=== PATIENT | male | born 1970 | race Caucasian/White ===

== ENCOUNTER 2016-04-23 19:38 | Emergency (ER) | payer OTHER ==
[~2016-04-23] VITALS: Ht 188 cm; Wt 106.1 kg
[~2016-04-23 19:38] MED LIST: OMEP20CA5 PO
[2016-04-23] MEDS ORDERED: ONDANSETRON PF 4 MG/2 ML VIAL. IV ONE (20:30)
[2016-04-23] MEDS ORDERED: IV NORMAL SALINE 1000ML BAG 1,000 ML IV ONE (20:30)
[2016-04-23 20:46] LABS: BASO % 0 % (0-3); EOS % 1 % (0-3); HEMATOCRIT 38.9 % (39.0-53.0); HEMOGLOBIN 12.5 g/dL (13.0-17.5); LYMPH # 1.3 x10^3/uL (1.0-4.8); LYMPH % 13 % (24-48); MEAN CORPUSCULAR HEMOGLOBIN 26 pg (25-35); MEAN CORPUSCULAR HGB CONC 32 g/dL (31-37); MEAN CORPUSCULAR VOLUME 82 fL (79-100); MONO % 8 % (0-9); NEUT % 78 % (31-73); PLATELET COUNT 300 x10^3/uL (140-400); RED BLOOD COUNT 4.76 x10^6/uL (4.30-5.70); RED CELL DISTRIBUTION WIDTH 17.7 % (11.5-14.5); WHITE BLOOD COUNT 10.1 x10^3/uL (4.0-11.0)
[2016-04-23 21:07] LABS: CALCIUM 9.5 mg/dL (8.5-10.1); CREATININE 1.1 mg/dL (0.7-1.3); GFR 71.8; POTASSIUM 4.5 mmol/L (3.5-5.1)
[2016-04-23 21:18] LABS: TOTAL BILIRUBIN 0.4 mg/dL (0.2-1.0)
[2016-04-23 21:19] LABS: OBC FLU VALID
[2016-04-23] MEDS ORDERED: NAPR500T3 PO (21:34)
--- NOTE | 2016-04-23 21:34 | PHYS DOC ---
Past Medical History Past Medical History: High Cholesterol Past Surgical History: Tonsillectomy Alcohol Use: Occasionally Drug Use: None Adult General Chief Complaint Chief Complaint: ABDOMINAL PAIN HPI HPI 45-year-old male presents with cough congestion and body aches headache some abdominal cramping and nausea. He did not have a flu shot this year. She just feels weak all over. He has not had any high fever.] Review of Systems Review of Systems Constitutional: Denies fever or chills [] Eyes: Denies change in visual acuity, redness, or eye pain [] HENT: Denies nasal congestion or sore throat [] Respiratory: Denies cough or shortness of breath [] Cardiovascular: No additional information not addressed in HPI [] GI: Per history of present illness [] : Denies dysuria or hematuria [] Musculoskeletal: Denies back pain or joint pain [] Integument: Denies rash or skin lesions [] Neurologic: Denies headache, focal weakness or sensory changes [] Endocrine: Denies polyuria or polydipsia [] Current Medications Current Medications Current Medications Medications (Trade) Dose Ordered Sig/Sathya Start Time Stop Time Status Last Admin Dose Admin Ondansetron HCl (Zofran) 4 mg 1X ONCE 04/23/16 20:30 04/23/16 20:31 DC 04/23/16 20:41 4 MG Sodium Chloride (Iv Sodium Chloride 0.9% 1000ml Bag) 1,000 ml @ 1,000 mls/hr 1X ONCE 04/23/16 20:30 04/23/16 21:29 04/23/16 20:42 1,000 MLS/HR Allergies Allergies Allergies Coded Allergies Type Severity Reaction Last Updated Verified No Known Drug Allergies 08/19/15 No Physical Exam Physical Exam Constitutional: Well developed, well nourished, no acute distress, non-toxic appearance. [] HENT: Normocephalic, atraumatic, bilateral external ears normal, oropharynx moist, no oral exudates, nose normal. [] Eyes: PERRLA, EOMI, conjunctiva normal, no discharge. [] Neck: Normal range of motion, no tenderness, supple, no stridor. [] Cardiovascular:Heart rate regular rhythm, no murmur [] Lungs & Thorax: Bilateral breath sounds clear to auscultation [] Abdomen: Bowel sounds normal, soft, no tenderness, no masses, no pulsatile masses. [] Skin: Warm, dry, no erythema, no rash. [] Back: No tenderness, no CVA tenderness. [] Extremities: No tenderness, no cyanosis, no clubbing, ROM intact, no edema. [] Neurologic: Alert and oriented X 3, normal motor function, normal sensory function, no focal deficits noted. [] Psychologic: Affect normal, judgement normal, mood normal. [] Current Patient Data Vital Signs Vital Signs Date Time Temp Pulse Resp B/P Pulse Ox O2 Delivery O2 Flow Rate FiO2 04/23/16 20:10 98.1 100 22 128/86 98 Room Air 98.1 Lab Values Laboratory Tests Test 04/23/16 20:15 04/23/16 20:40 White Blood Count 10.1x10^3/uL (4.0-11.0) Red Blood Count 4.76x10^6/uL (4.30-5.70) Hemoglobin 12.5g/dL (13.0-17.5) L Hematocrit 38.9% (39.0-53.0) L Mean Corpuscular Volume 82fL (79-100) Mean Corpuscular Hemoglobin 26pg (25-35) Mean Corpuscular Hemoglobin Concent 32g/dL (31-37) Red Cell Distribution Width 17.7% (11.5-14.5) H Platelet Count 300x10^3/uL (140-400) Neutrophils (%) (Auto) 78% (31-73) H Lymphocytes (%) (Auto) 13% (24-48) L Monocytes (%) (Auto) 8% (0-9) Eosinophils (%) (Auto) 1% (0-3) Basophils (%) (Auto) 0% (0-3) Neutrophils # (Auto) 7.9x10^3uL (1.8-7.7) H Lymphocytes # (Auto) 1.3x10^3/uL (1.0-4.8) Monocytes # (Auto) 0.8x10^3/uL (0.0-1.1) Eosinophils # (Auto) 0.1x10^3/uL (0.0-0.7) Basophils # (Auto) 0.0x10^3/uL (0.0-0.2) Sodium Level 142mmol/L (136-145) Potassium Level 4.5mmol/L (3.5-5.1) Chloride Level 105mmol/L (98-107) Carbon Dioxide Level 23mmol/L (21-32) Anion Gap 14 (6-14) Blood Urea Nitrogen 12mg/dL (8-26) Creatinine 1.1mg/dL (0.7-1.3) Estimated GFR (Cockcroft-Gault) 71.8 BUN/Creatinine Ratio 11 (6-20) Glucose Level 117mg/dL (70-99) H Calcium Level 9.5mg/dL (8.5-10.1) Total Bilirubin 0.4mg/dL (0.2-1.0) Aspartate Amino Transferase (AST) 20U/L (15-37) Alanine Aminotransferase (ALT) 39U/L (16-63) Alkaline Phosphatase 64U/L (46-116) Troponin I Quantitative < 0.017ng/mL (0.000-0.055) XZ-Rbc-T-Type Natriuretic Peptide 18pg/mL (0-124) Total Protein 8.0g/dL (6.4-8.2) Albumin 4.0g/dL (3.4-5.0) Albumin/Globulin Ratio 1.0 (1.0-1.7) Influenza Type A Antigen Negative (NEGATIVE) Influenza Type B Antigen Negative (NEGATIVE) Laboratory Tests 04/23/16 20:15 Laboratory Tests 04/23/16 20:15 EKG EKG [] Radiology/Procedures Radiology/Procedures [] Course & Med Decision Making Course & Med Decision Making Pertinent Labs and Imaging studies reviewed. (See chart for details) [ED course: Evaluation reveals a 45-year-old male in no significant distress was evaluated for what sounds like flulike symptoms. He is given IV fluids during his stay in the emergency which did help alleviate his symptoms.] Dragon Disclaimer Dragon Disclaimer This electronic medical record was generated, in whole or in part, using a voice recognition dictation system. Departure Departure Impression: Primary Impression: Viral syndrome Disposition: 01 HOME, SELF-CARE Condition: IMPROVED Referrals: IAN BENSON MD (PCP) Patient Instructions: Viral Syndrome Additional Instructions: Thank you for allowing us to participate in your care today. Followup with your primary care physician in 3 days if your symptoms do not improve. Return to the emergency department you have any new or concerning findings. This should be evaluated by the primary care physician and any necessary consulting services for continued management within a few days after discharge. Return to emergency room if you have any new or concerning symptoms including but not limited to fever, chills, nausea, vomiting, intractable pain, any new rashes, chest pain, shortness of air, uncontrolled bleeding, difficulty breathing, and/or vision loss. You may have been prescribed medication that can change in your level of thinking and ability to operate machinery. These medications include hydrocodone and Ativan. Also, Benadryl has been known to do this as well. Be sure to check with your pharmacist and ask if the medications you've prescribed can affect your level of consciousness. I recommend not operating heavy machinery or driving while on medication such as these. Scripts Naproxen 500 Mg Tablet1 Tab PO BID PRN PAIN #30 TAB Ref 1 Prov:KEREN FUNG DO 04/23/16 KEREN FUNG DO Apr 23, 2016 21:34
[2016-04-23 21:50] LABS: BILIRUBIN,URINE NEGATIVE (NEG); GLUCOSE,URINE NEGATIVE (NEG); NITRITE,URINE NEGATIVE (NEG); PROTEIN,URINE NEGATIVE (NEG-TRACE)
[2016-04-23 21:55] LABS: BACTERIA,URINE 0 /HPF (0-FEW); RBC,URINE 0 /HPF (0-2); SQUAMOUS EPITHELIAL CELL,UR OCC /LPF; WBC,URINE OCC /HPF (0-4)
[2016-04-23 21:56] VITALS: BP 112/73
--- NOTE | 2016-04-24 06:08 | EKG ---
[facility] [address] [place] [address] Test Date: 2016-04-23 Test Time: 20:09:41 Pat Name: GIO RICHARDSON Department: Room: Gender: Manufacturing Quality Engineer: : 1970 Requested By: KEREN FUNG Order Number: [id number] Reading MD: Jake Morales Measurements Intervals [place] Rate: 106 P: NM: QRS: -31 QRSD: 90 T: 28 QT: 332 QTc: [address] Electronically Signed On 04-24-2016 15:45:48 VIDEO CONFERENCE SPECIALIST by Jake Morales
--- NOTE | 2016-04-24 07:36 | RAD ---
EXAM: Chest, single view. HISTORY: Dyspnea. COMPARISON: None. FINDINGS: A frontal view of the chest is obtained. There is no infiltrate, effusion or pneumothorax. The heart is normal in size. IMPRESSION: No acute pulmonary finding.
== END 2016-04-23 21:56 | disposition home or self-care (01) ==
LOC: ER 19:38
DX: B34.9 Viral infection, unspecified (principal); E78.00 Pure hypercholesterolemia, unspecified; R11.0 Nausea; R53.1 Weakness; Z90.89 Acquired absence of other organs
CPT/HCPCS: 36415; 71010; 80053; 81001; 83880; 84484; 85027; 87804; 93005; 96361; 96374; 99285; J2405; J7030

== ENCOUNTER 2017-11-06 01:48 | Emergency (ER) | payer OTHER ==
[2017-11-06] MEDS ORDERED: diazePAM 5 MG TABLET (02:19)
[2017-11-06] MEDS ORDERED: MORPHINE SULFATE 10 MG/ML VIAL. (02:19)
[2017-11-06] MEDS: diazePAM 5 MG TABLET PO (02:23)
[2017-11-06] MEDS: MORPHINE SULFATE 10 MG/ML VIAL. IM (02:23)
== END 2017-11-06 03:15 | disposition home or self-care (01) ==
LOC: ER 01:48
DX: M62.830 Muscle spasm of back (principal); E78.00 Pure hypercholesterolemia, unspecified; V50.5XXA Driver of pick-up truck or van injured in collision with pedestrian or animal in traffic accident, initial encounter; Y93.89 Activity, other specified; Y92.488 Other paved roadways as the place of occurrence of the external cause; Y99.8 Other external cause status
CPT/HCPCS: 96372; 99283; J2270

== ENCOUNTER → 2018-09-22 | Outpatient (CLI) | payer OTHER ==
[2017-11-06 02:00] VITALS: BP 128/78
[~2018-09-22] MED LIST changes: +DIAZ5TAB PO; +HYDR-3164 PO; +IBUP-1060 PO; +NAPR-514 PO
--- NOTE | 2018-09-22 13:34 | KCIC ---
MR of the right knee HISTORY: Acute right knee pain, suspect medial meniscal injury. Pain around the patella. TECHNIQUE: Routine multiplanar sequences are obtained. FINDINGS: No evidence of medial meniscal tear or lateral meniscal tear. Anterior and posterior cruciate ligaments are intact. There is a small cyst or ganglion along the ACL. Medial collateral ligament intact. Iliotibial band unremarkable. Fibular collateral ligament and popliteus tendon are intact. Extensor mechanism is intact. Trace joint effusion. Mild chondromalacia of the patellofemoral joint. Mild chondromalacia at the medial joint. No acute fracture or aggressive bone destruction. Trace Coreas's cyst. IMPRESSION: 1. No meniscal tear or internal derangement. 2. Mild chondromalacia. Electronically signed by: Keith Deutsch MD (09/22/2018 1:30 PM) [id number]
== END | disposition home or self-care (01) ==
LOC: KCIC MRI 08:04
PROVIDERS: ATTEND Orthopaedic Surgery
DX: M22.41 Chondromalacia patellae, right knee (principal)
CPT/HCPCS: 73721

== ENCOUNTER → 2018-12-08 | Outpatient (CLI) | payer OTHER ==
[2017-11-06 02:00] VITALS: BP 128/78
[2018-12-08 20:30] LABS: CREATININE 1.2 mg/dL (0.7-1.3); GFR 64.1; POTASSIUM 3.6 mmol/L (3.5-5.1)
[2018-12-08 20:31] LABS: CHOLESTEROL/HDL RATIO 5.7
[2018-12-08 20:42] LABS: BASO % 1 % (0-3); EOS # 0.2 x10^3/uL (0.0-0.7); EOS % 3 % (0-3); HEMATOCRIT 43.6 % (39.0-53.0); HEMOGLOBIN 14.7 g/dL (13.0-17.5); LYMPH # 2.2 x10^3/uL (1.0-4.8); LYMPH % 41 % (24-48); MEAN CORPUSCULAR HEMOGLOBIN 32 pg (25-35); MEAN CORPUSCULAR HGB CONC 34 g/dL (31-37); MEAN CORPUSCULAR VOLUME 94 fL (79-100); MONO # 0.5 x10^3/uL (0.0-1.1); MONO % 8 % (0-9); NEUT # 2.6 x10^3/uL (1.8-7.7); NEUT % 48 % (31-73); PLATELET COUNT 204 x10^3/uL (140-400); RED BLOOD COUNT 4.62 x10^6/uL (4.30-5.70); RED CELL DISTRIBUTION WIDTH 16.5 % (11.5-14.5); WHITE BLOOD COUNT 5.5 x10^3/uL (4.0-11.0)
[2018-12-10 04:09] LABS: HEMOGLOBIN A1C 5.5 % (4.8-5.6)
== END | disposition home or self-care (01) ==
LOC: SPEC 19:55
PROVIDERS: ATTEND Family Medicine
DX: Z12.5 Encounter for screening for malignant neoplasm of prostate (principal); Z13.220 Encounter for screening for lipoid disorders; E16.2 Hypoglycemia, unspecified; Z82.49 Family history of ischemic heart disease and other diseases of the circulatory system
CPT/HCPCS: 36415; 80048; 80061; 83036; 84153; 84439; 84443; 85025; G0103

== ENCOUNTER → 2019-02-12 | Day surgery (SDC) | payer OTHER ==
[~2019-02-12] MED LIST changes: +IV RINGERS,LACTATED 1000ML 1,000 ML IV ONE; +LIDOCAINE 2% PF 5 ML VIAL. ONE; +PROPOFOL 40 ML IV ONE
[2019-02-12 13:59] VITALS: BP 150/74
--- NOTE | 2019-02-16 17:06 | PATHOLOGY ---
[facility] Accession Number: [id number] . 01 Material submitted: . PART A: splenic flexure - SPLENIC FLEXURE POLYPECTOMY PART B: rectum - RECTAL MASS BX . 01 Clinical history: . Rectal bleed . 02 Diagnosis: A. Colon, splenic flexure, biopsy: - Adenomatous polyp. . B. Colon, "rectal mass", biopsy: - INVASIVE MODERATELY DIFFERENTIATED ADENOCARCINOMA. . (Please see comment). (SKM:pit; 02/13/2019) [facility] 02/13/2019 0953 Local . 02 Comment: Part B of this case has also been reviewed by Dr. Deni Spaulding MD who agrees with the diagnosis. . The findings in this case were relayed to Nessa at Dr. Michael Jackson's office on 02/13/2019. (SKM:[facility]; 02/13/2019) . . 02 Electronically signed: . Gopi Denis MD, Pathologist NPI- [id number] . 01 Gross description: . A. Received in formalin labeled "Getachew Laureano, splenic flexure polypectomy," is a 0.8 x 0.5 x 0.5 cm polypoid piece of nolan soft tissue. The margin is inked and the tissue is sectioned perpendicular to the margin and submitted entirely in cassette A1. . B. Received in formalin labeled "Getachew Laureano, rectal mass BX," are multiple segments of nolan soft tissue measuring 2.0 x 0.4 x 0.1 cm in aggregate dimensions. The specimen is filtered and entirely submitted in cassette B1. (TSD; 02/12/2019) TOB/TOB 02/12/20191958 Local . 02 Pathologist provided ICD-10: C20, K63.5 . 02 CPT . 008938, 212643 Specimen Comment: A courtesy copy of this report has been sent to [phone], [phone] Specimen Comment: [phone] Specimen Comment: Report sent to / DR DAUGHERTY Performed at: 01 [facility] [address], [place] [id number] MD Niranjan Ritchie MD Phone: [phone] Performed at: 02 [facility] [address] [place], [place] [id number] MD Dhruv Yanez MD Phone: [phone]
== END | disposition home or self-care (01) ==
LOC: ENDOS 11:29
PROVIDERS: ATTEND Internal Medicine Gastroenterology
DX: K92.1 Melena (principal); C20 Malignant neoplasm of rectum; D12.3 Benign neoplasm of transverse colon; K57.30 Diverticulosis of large intestine without perforation or abscess without bleeding; K64.0 First degree hemorrhoids; F15.90 Other stimulant use, unspecified, uncomplicated; Z72.89 Other problems related to lifestyle
CPT/HCPCS: 45380; 45385; 88305; J2001; J2704

== ENCOUNTER → 2019-02-27 | Outpatient (CLI) | payer OTHER ==
[2019-02-12 13:59] VITALS: BP 150/74
[~2019-02-27] MED LIST changes: +IOHEXOL 240 MG/ML 50ML VIAL. PO ONE; +IOHEXOL 300 MG/ML 100ML VIAL. IV ONE; -IV RINGERS,LACTATED 1000ML 1,000 ML IV ONE; -LIDOCAINE 2% PF 5 ML VIAL. ONE; -PROPOFOL 40 ML IV ONE
--- NOTE | 2019-02-27 14:10 | KCIC ---
CT ABD PELV W/ORAL IV CONTRAST Indication: Rectal mass, rectal bleeding Technique: Postcontrast CT imaging was performed of the abdomen pelvis, multiplanar reconstruction images submitted. Oral contrast was also given. One or more of the following individualized dose reduction techniques were utilized for this examination: 1. Automated exposure control 2. Adjustment of the mA and/or kV according to patient size 3. Use of iterative reconstruction technique. Comparison: None Findings: There is mild atelectasis near the lung bases bilaterally. There is approximate 1 cm noncalcified lingular nodule best seen image 8 series 2. However there is also atelectasis in this region. No focal abnormality is identified of the liver, spleen, pancreas. Gallbladder is present without obvious intraluminal abnormality by CT. There is no adrenal nodularity. Both kidneys enhance, no hydronephrosis. Bowel is not significantly dilated. There is no free fluid or free air. The colon is not opacified with oral contrast for accurate evaluation for wall thickening. There is variable retained stool in the colon. Segment of normal appendix is visualized. There may be degree of wall thickening of the more distal sigmoid colon to rectum. No significantly enlarged nodes are identified. IMPRESSION: 1. No significant lymphadenopathy or evidence of metastatic disease to the abdomen pelvis is identified. There is variable retained stool in the colon. There may be degree of nonspecific wall thickening of the distal sigmoid colon to the rectum, cannot accurately evaluate for colonic mass on this exam. 2. There may be a lingular nodule although there is also atelectasis in this region. Regarding the visualized nodule, 3 month follow-up is recommended as per revised Fleischner guidelines. Dedicated chest CT may be beneficial to completely evaluate for nodules. Electronically signed by: Darin Orozco MD (02/27/2019 2:08 PM) [facility]
== END | disposition home or self-care (01) ==
LOC: KCIC CT 09:25
PROVIDERS: ATTEND Internal Medicine Gastroenterology
DX: K62.5 Hemorrhage of anus and rectum (principal); K62.89 Other specified diseases of anus and rectum; J98.11 Atelectasis; R91.1 Solitary pulmonary nodule
CPT/HCPCS: 74177; Q9966; Q9967

== ENCOUNTER → 2019-03-17 | Outpatient (CLI) | payer OTHER ==
[2019-02-12 13:59] VITALS: BP 150/74
[~2019-03-17] MED LIST changes: +GADOTERATE 7.5 MMOL/15ML VIAL. IVP ONE; -IOHEXOL 240 MG/ML 50ML VIAL. PO ONE; -IOHEXOL 300 MG/ML 100ML VIAL. IV ONE; +SERT25TA PO
--- NOTE | 2019-03-17 14:39 | RAD ---
EXAM: MRI PELVIS WITH AND WITHOUT CONTRAST. HISTORY: Rectal cancer staging. TECHNIQUE: MRI of the pelvis was performed before and after the intravenous administration of gadolinium contrast. [place] Journal of Roentgenology 2008; 191:1827?1835. COMPARISON: 02/27/2019. FINDINGS: A rectal mass begins 2.2 cm proximal to the anal verge and extends proximally by 2.1 cm. The staging scheme for low rectal tumors is thus used. Tumor involvement is circumferential. The mass is entirely below the anterior peritoneal reflection. The anterior peritoneal reflection is not involved. Imaging characteristics indicate stage: T2: Tumor replaces musculars propria but does not extend into intersphincteric plane. The muscularis propria is mostly preserved, but becomes indistinct in partial segments on the left. Mesorectal node status: N0: No regional lymph node metastases. Tiny perirectal lymph nodes measure 3 mm or less. No clearly involved lymph nodes are seen. Extramesorectal dov involvement is not identified. Extramural venous invasion is not identified. There is mild benign prostatic hypertrophy. IMPRESSION: 1. Circumferential low rectal mass beginning 2.2 cm from the anal verge and extending proximally by 2.1 cm. Imaging characteristics imply stage T2 N0, using the low rectal cancer staging scheme. No findings predicted of circumferential resection margin positivity are identified. Electronically signed by: Darrel Carvalho MD (03/17/2019 2:36 PM) [id number]
== END | disposition home or self-care (01) ==
LOC: MRI 10:15
PROVIDERS: ATTEND Radiology Radiation Oncology
DX: C20 Malignant neoplasm of rectum (principal)
CPT/HCPCS: 72197; A9575

== ENCOUNTER → 2019-03-17 | Outpatient (CLI) | payer OTHER ==
[2019-02-12 13:59] VITALS: BP 150/74
[~2019-03-17] MED LIST changes: -GADOTERATE 7.5 MMOL/15ML VIAL. IVP ONE
== END | disposition home or self-care (01) ==
LOC: SPEC 16:03
PROVIDERS: ATTEND Internal Medicine Hematology & Oncology
DX: C20 Malignant neoplasm of rectum (principal)
CPT/HCPCS: 36415; 82378

== ENCOUNTER → 2019-03-25 | Outpatient (CLI) | payer OTHER ==
[2019-02-12 13:59] VITALS: BP 150/74
[~2019-03-25] MED LIST changes: +IOHEXOL 300 MG/ML 100ML VIAL. IV ONE
--- NOTE | 2019-03-25 17:14 | RAD ---
Chest CT with contrast Clinical indications: Rectal cancer COMPARISON: No previous chest CT available. TECHNIQUE: After IV infusion of 75 cc of Optiray 300, helical CT scanning of the chest was performed. PQRS compliance Statement One or more of the following individualized dose reduction techniques were utilized for this study: 1. Automated exposure control 2. Adjustment of the mA and/or kV according to patient size 3. Use of iterative reconstruction technique FINDINGS: There is a round nodule present within the anterior mediastinum measuring 2 cm in size and measuring 4 Hounsfield units consistent with a cyst or fluid. No enlarged thoracic lymphadenopathy is seen otherwise. No focal aneurysmal dilatation or dissection of the thoracic aorta is seen. Heart size is normal and no pericardial effusion is evident. There is a nodular infiltrate within the posterior lateral aspect of the inferior segment of the lingula. In the coronal images, this has a more linear appearance and therefore may represent scarring or atelectasis rather than a true lung nodule. On series 2 and image 16 and 17 and coronal image 29/series 4, there is a small groundglass lung nodule present measuring 5 mm within the right upper lobe. No other lung nodule or lung infiltrate is present. No pleural effusion or pneumothorax is seen. No adrenal mass is evident. No lytic process is seen. IMPRESSION: Nodule seen within the lingula on the recent abdomen CT dated February 27, 2019 represents atelectasis or scarring in the coronal image. There is a benign groundglass nodule within the right upper lobe measuring 5 mm in size. Otherwise no lung metastatic disease is seen. 2 cm cyst or round fluid collection within the anterior mediastinum. No thoracic lymphadenopathy. Electronically signed by: Victor Manuel Davis MD (03/25/2019 5:11 PM) [place] [id number]
== END | disposition home or self-care (01) ==
LOC: CT 09:39
PROVIDERS: ATTEND Internal Medicine Hematology & Oncology
DX: R91.1 Solitary pulmonary nodule (principal); R91.8 Other nonspecific abnormal finding of lung field; C20 Malignant neoplasm of rectum
CPT/HCPCS: 71260; Q9967

== ENCOUNTER 2019-07-10 11:28 | Emergency (ER) | payer OTHER ==
[~2019-07-10] VITALS: Ht 190.5 cm; Wt 102.0 kg
[~2019-07-10 11:28] MED LIST changes: -IOHEXOL 300 MG/ML 100ML VIAL. IV ONE
--- NOTE | 2019-07-10 11:58 | PHYS DOC ---
Past Medical History Past Medical History: High Cholesterol Past Surgical History: Tonsillectomy Smoking Status: Never Smoker Alcohol Use: Occasionally Drug Use: None Adult General Chief Complaint Chief Complaint: Congestion HPI HPI Patient is a 48 year old male who presents secondary to complaint of cough and congestion for the past 2 months. He reports a cruise earlier this year. His has been sick with similar symptoms for the past 2 weeks. Denies smoking. No chest pain. Review of Systems Review of Systems All other systems were reviewed and found to be within normal limits, except as documented in this note. Current Medications Current Medications Current Medications Medications (Trade) Dose Ordered Sig/Sathya Start Time Stop Time Status Last Admin Dose Admin Albuterol/ Ipratropium (Duoneb) 3 ml 1X ONCE 07/10/19 12:00 07/10/19 12:01 DC 07/10/19 12:00 3 ML Allergies Allergies Allergies Coded Allergies Type Severity Reaction Last Updated Verified No Known Drug Allergies 02/12/19 No Physical Exam Physical Exam Constitutional: Well developed, well nourished, no acute distress, non-toxic appearance. [] HENT: Normocephalic, atraumatic, bilateral external ears normal, oropharynx moist, no oral exudates, nose normal. [] Eyes: PERRLA, EOMI, conjunctiva normal, no discharge. [] Neck: Normal range of motion, no tenderness, supple, no stridor. [] Cardiovascular:Heart rate regular rhythm, no murmur [] Lungs & Thorax: Mild expiratory wheezes Abdomen: Bowel sounds normal, soft, no tenderness, no masses, no pulsatile masses. [] Skin: Warm, dry, no erythema, no rash. [] Back: No tenderness, no CVA tenderness. [] Extremities: No tenderness, no cyanosis, no clubbing, ROM intact, no edema. [] Neurologic: Alert and oriented X 3, normal motor function, normal sensory function, no focal deficits noted. [] Psychologic: Affect normal, judgement normal, mood normal. [] Current Patient Data Vital Signs Vital Signs Date Time Temp Pulse Resp B/P (MAP) Pulse Ox O2 Delivery O2 Flow Rate FiO2 07/10/19 12:10 96 Room Air 07/10/19 12:04 98.7 86 18 119/80 (93) 98.7 EKG EKG [] Radiology/Procedures Radiology/Procedures Examination: CHEST AP ONLY History: Cough, shortness of breath Comparison: 03/25/2019 CT chest with contrast. Findings: AP portable upright frontal view of the chest was obtained. The cardiomediastinal silhouette is normal. Lungs are clear. There is no pneumothorax. No pleural effusion is appreciated. No acute bone abnormality. IMPRESSION: No acute cardiopulmonary process.[] Course & Med Decision Making Course & Med Decision Making Pertinent Labs and Imaging studies reviewed. (See chart for details) 1158: Patient seen for cough and congestion. With expiratory wheezes will obtain chest x-ray and give a DuoNeb breathing treatment. Vital signs are stable Dragon Disclaimer Dragon Disclaimer This electronic medical record was generated, in whole or in part, using a voice recognition dictation system. Departure Departure Impression: Primary Impression: Viral bronchitis Disposition: 01 HOME, SELF-CARE Condition: STABLE Referrals: YAKOV DAUGHERTY MD (PCP) Please follow up as needed. Patient Instructions: Acute Bronchitis Additional Instructions: Please return to the ED for difficulty breathing. Scripts Albuterol Sulfate (PROAIR HFA INHALER) 8.5 Gm Hfa.aer.ad 2 PUFF IH PRN Q4-6HRS PRN for wheezing for 21 Days, #1 INHALER 0 Refills Prov: JAVON WOODS DO 07/10/19 Azithromycin (ZITHROMAX) 250 Mg Tablet 250 MG PO as directed for ANTI-BIOTIC, #6 TAB 0 Refills Take 2 PO x 1 days Then take 1 PO q 24 hour for the next 4 days Prov: JAVON WOODS DO 07/10/19 JAVON WOODS DO Jul 10, 2019 11:58
[2019-07-10] MEDS ORDERED: IPRATRPIUM/ALBUTEROL 0.5/2.5MG 3 ML NEBU. NEB ONE (12:00)
[2019-07-10 12:04] VITALS: BP 119/80
--- NOTE | 2019-07-10 12:13 | RAD ---
Examination: CHEST AP ONLY History: Cough, shortness of breath Comparison: 03/25/2019 CT chest with contrast. Findings: AP portable upright frontal view of the chest was obtained. The cardiomediastinal silhouette is normal. Lungs are clear. There is no pneumothorax. No pleural effusion is appreciated. No acute bone abnormality. IMPRESSION: No acute cardiopulmonary process. Electronically signed by: Carlos Alberto Jose MD (07/10/2019 12:10 PM) [id number]
[2019-07-10] MEDS ORDERED: ALBU2.5V8 IH (12:25)
[2019-07-10] MEDS ORDERED: AZIT250T PO (12:25)
== END 2019-07-10 12:36 | disposition home or self-care (01) ==
LOC: ER 11:28
DX: J02.8 Acute pharyngitis due to other specified organisms (principal); R09.81 Nasal congestion; R05 Cough; E78.00 Pure hypercholesterolemia, unspecified; Z90.89 Acquired absence of other organs
CPT/HCPCS: 71045; 94640; 99283

== ENCOUNTER 2019-10-31 11:29 | Emergency (ER) | payer OTHER ==
[~2019-10-31] VITALS: Ht 193 cm; Wt 105.0 kg
[~2019-10-31 11:29] MED LIST changes: +ALBU2.5V8 IH; +AZIT250T PO
[2019-10-31] MEDS ORDERED: IV NORMAL SALINE 1000ML BAG 1,000 ML IV SCH (11:39)
[2019-10-31] MEDS ORDERED: fentaNYL PF VIAL 100 MCG/2 ML VIAL IV PRN (11:45)
[2019-10-31] MEDS ORDERED: IOHEXOL 300 MG/ML 100ML VIAL. IV ONE (12:00)
[2019-10-31 12:01] LABS: BASO % 1 % (0-3); EOS # 0.1 x10^3/uL (0.0-0.7); EOS % 2 % (0-3); HEMATOCRIT 36.1 % (39.0-53.0); HEMOGLOBIN 13.1 g/dL (13.0-17.5); LYMPH # 2.6 x10^3/uL (1.0-4.8); LYMPH % 40 % (24-48); MEAN CORPUSCULAR HEMOGLOBIN 35 pg (25-35); MEAN CORPUSCULAR HGB CONC 36 g/dL (31-37); MEAN CORPUSCULAR VOLUME 98 fL (79-100); MONO # 0.5 x10^3/uL (0.0-1.1); MONO % 7 % (0-9); NEUT # 3.2 x10^3/uL (1.8-7.7); NEUT % 50 % (31-73); PLATELET COUNT 224 x10^3/uL (140-400); RED CELL DISTRIBUTION WIDTH 14.2 % (11.5-14.5); WHITE BLOOD COUNT 6.4 x10^3/uL (4.0-11.0)
[2019-10-31 12:13] LABS: CALCIUM 8.1 mg/dL (8.5-10.1); CREATININE 1.1 mg/dL (0.7-1.3); GFR 70.9
[2019-10-31] MEDS ORDERED: CONTRAST GIVEN. MC PRN (12:15)
[2019-10-31 12:18] LABS: ALBUMIN 3.7 g/dL (3.4-5.0); ALBUMIN/GLOBULIN RATIO 1.2 (1.0-1.7); TOTAL BILIRUBIN 0.2 mg/dL (0.2-1.0); TOTAL PROTEIN 6.8 g/dL (6.4-8.2)
--- NOTE | 2019-10-31 12:34 | RAD ---
Examination: CT head and cervical spine without contrast CT HEAD INDICATION: Reason: chest trauma / Spl. Instructions: / History: COMPARISON: None Available. Exposure: One or more of the following individualized dose reduction techniques were utilized for this examination: 1. Automated exposure control 2. Adjustment of the mA and/or kV according to patient size 3. Use of iterative reconstruction technique TECHNIQUE: 5 mm contiguous axial images were obtained from the skull base to the vertex in both bone and soft tissue algorithm. FINDINGS: No abnormal attenuation within the brain parenchyma. No evidence of acute intracranial hemorrhage. No extra-axial fluid collections. No mass effect or midline shift. Ventricular size is appropriate. Basal cisterns are patent. No fractures identified.Orozco-white differentiation is preserved.Globes and orbits are within normal limits. Complete opacification of the left maxillary sinus likely sinus disease. IMPRESSION: No acute intracranial findings. CT CERVICAL SPINE INDICATION: Reason: chest trauma / Spl. Instructions: / History: COMPARISON: None Available. Technique: 2.5 mm contiguous axial images were obtained from the skull base through the cervicothoracic junction in both bone and soft tissue algorithm. Additional sagittal and coronal reconstructions were also performed. FINDINGS: Vertebral body height and alignment are maintained. Cervical lordosis is preserved. The lateral masses of C1 are aligned upon C2. No fractures identified. The bony canal is patent throughout. No significant degenerative changes are identified. The paraspinous soft tissues are unremarkable. Visualized intracranial contents are unremarkable. Lung apices are clear. IMPRESSION: No acute fracture of the cervical spine. Correlate clinically. Electronically signed by: Stefan Calderon MD (10/31/2019 12:31 PM) [id number]
--- NOTE | 2019-10-31 12:47 | RAD ---
Examination: CT CHEST ABD PELVIS W/CONTRAST History: Reason: chest trauma; pain Comparison/Correlation: 03/25/[address] chest with contrast, 04/29/2018 CT abdomen and pelvis without contrast Findings: Axial images of the chest, abdomen, and pelvis were obtained following IV contrast. Sagittal and coronal reformatted images were provided. Within the anterior mediastinal fat, there is a 1.5 cm diameter cystic structure which is stable. It is fluid density. No enlarged thoracic lymph nodes. Minimal linear atelectasis at the left lower lobe basilar aspect is present. No pneumothorax. Small groundglass infiltrate at the lateral right lung field is again identified currently seen on axial image 17 of series 2 without significant change. Linear atelectasis or scarring involving the lingula is again seen. Stomach is distended with debris and fluid. Liver, spleen, pancreas, adrenal glands, and kidneys are normal. Gallbladder fossa is unremarkable. Appendix is unremarkable. Moderate quantity of stool is present throughout the colon. Diverticulosis is present. Urinary bladder is unremarkable. No ascites or pelvic free fluid. No enlarged abdominal or pelvic metastases. Bony structures are unremarkable. Impression: Small focal groundglass infiltrate is present. Interval follow-up in 1 year is recommended to assess stability. Minimal scattered linear atelectasis at the left lung base. Stomach is distended with debris and fluid. Diverticulosis of the colon. No suspicious acute process. PQRS Compliance Statement: One or more of the following individualized dose reduction techniques were utilized for this examination: 1. Automated exposure control 2. Adjustment of the mA and/or kV according to patient size 3. Use of iterative reconstruction technique Electronically signed by: Carlos Alberto Jose MD (10/31/2019 12:44 PM) [id number]
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
[2019-10-31 13:36] VITALS: BP 124/75
[2019-10-31] MEDS ORDERED: HYDR-3164 PO (13:38)
[2019-10-31] MEDS ORDERED: METH-38 PO (13:38)
== END 2019-10-31 13:44 | disposition home or self-care (01) ==
LOC: ER 11:29
DX: S01.81XA Laceration without foreign body of other part of head, initial encounter (principal); S20.212A Contusion of left front wall of thorax, initial encounter; S30.1XXA Contusion of abdominal wall, initial encounter; K57.30 Diverticulosis of large intestine without perforation or abscess without bleeding; E78.00 Pure hypercholesterolemia, unspecified; V86.59XA Driver of other special all-terrain or other off-road motor vehicle injured in nontraffic accident, initial encounter; Y92.488 Other paved roadways as the place of occurrence of the external cause; Y93.89 Activity, other specified; Y99.8 Other external cause status
CPT/HCPCS: 12011; 36415; 70450; 71260; 72125; 74177; 80053; 85025; 85610; 85730; 99285; G0480; J3010; J7030; Q9967

== ENCOUNTER → 2019-12-18 | Outpatient (CLI) | payer OTHER ==
[~2019-12-18] MED LIST changes: +DICY20TA3 PO; +LACT1CAP29 PO; +METH-38 PO
[2019-12-18 11:47] LABS: BASO % 1 % (0-3); EOS # 0.1 x10^3/uL (0.0-0.7); EOS % 3 % (0-3); HEMATOCRIT 38.8 % (39.0-53.0); HEMOGLOBIN 13.5 g/dL (13.0-17.5); LYMPH # 2.3 x10^3/uL (1.0-4.8); LYMPH % 44 % (24-48); MEAN CORPUSCULAR HEMOGLOBIN 34 pg (25-35); MEAN CORPUSCULAR HGB CONC 35 g/dL (31-37); MEAN CORPUSCULAR VOLUME 96 fL (79-100); MONO # 0.4 x10^3/uL (0.0-1.1); MONO % 8 % (0-9); NEUT # 2.3 x10^3/uL (1.8-7.7); NEUT % 44 % (31-73); PLATELET COUNT 192 x10^3/uL (140-400); RED BLOOD COUNT 4.03 x10^6/uL (4.30-5.70); RED CELL DISTRIBUTION WIDTH 13.2 % (11.5-14.5); WHITE BLOOD COUNT 5.2 x10^3/uL (4.0-11.0)
[2019-12-18 11:58] LABS: CALCIUM 8.3 mg/dL (8.5-10.1); CREATININE 1.1 mg/dL (0.7-1.3); GFR 70.6; POTASSIUM 3.4 mmol/L (3.5-5.1)
[2019-12-18 12:16] LABS: ALBUMIN 3.6 g/dL (3.4-5.0); TOTAL BILIRUBIN 0.4 mg/dL (0.2-1.0); TOTAL PROTEIN 7.2 g/dL (6.4-8.2)
== END | disposition home or self-care (01) ==
LOC: ONCLAB 11:14
PROVIDERS: ATTEND Internal Medicine Hematology & Oncology
DX: C20 Malignant neoplasm of rectum (principal)
CPT/HCPCS: 36415; 80053; 82378; 82607; 82728; 82746; 83540; 83550; 85025

== ENCOUNTER → 2019-12-28 | Outpatient (CLI) | payer OTHER ==
[~2019-12-28] MED LIST changes: -DICY20TA3 PO; +GADOTERATE 7.5 MMOL/15ML VIAL. IVP ONE; +IOHEXOL 240 MG/ML 50ML VIAL. PO ONE; +IOHEXOL 300 MG/ML 100ML VIAL. IV ONE; -LACT1CAP29 PO
--- NOTE | 2019-12-28 14:28 | KCIC ---
EXAM: CT Chest, Abdomen and Pelvis with IV contrast CLINICAL HISTORY: Reason: RECTAL CANCER / Spl. Instructions: ORAL AND IV OMNI 300 100ML / History: PRIOR CT CAP 10/31/19 COMPARISON: 10/31/2019, 03/25/2019 TECHNIQUE: Helical CT of the chest, abdomen and pelvis was performed following the administration of intravenous contrast. Axial, coronal and sagittal reformatted images were generated. ---PQRS compliance statement - One or more of the following individualized dose reduction techniques were utilized for this study: 1. Automated exposure control 2. Adjustment of the mA and/or kV according to patient size 3. Use of iterative reconstruction technique--- FINDINGS: Chest: Heart is not enlarged. No pericardial effusion. Coronary artery calcifications are seen. Small volume fluid in the anterior mediastinum measures 1.7 x 1.3 cm, when remeasured on prior, measured 1.6 x 1.3 cm, stable. No mediastinal or hilar lymphadenopathy. No axillary lymphadenopathy. Thyroid is grossly unremarkable. No pleural effusion or pneumothorax. 7 mm nodular opacity in the lingula is grossly stable to borderline decrease in size compared to 03/25/2019, in the region of scarring/atelectasis. Linear opacities in the lower lobes are also seen, likely scarring/atelectasis. 7 mm groundglass nodule in the right upper lobe (series 2 image 24) is grossly stable accounting for differences in technique. No suspicious new lung nodule or mass is seen. No lobar consolidation. Abdomen and Pelvis: Liver and biliary system: No focal liver lesion. Hepatic hypoattenuation may be seen with fatty liver. Gallbladder is normal. No biliary ductal dilatation. Spleen: Unremarkable Pancreas: Unremarkable Adrenal glands: Unremarkable Kidneys: Symmetric nephrograms. No focal renal lesion. No hydronephrosis. No hydroureter. Lymph nodes/retroperitoneum: No abdominal or pelvic lymphadenopathy. Vessels: Aorta is normal in caliber. Bowel/Peritoneal cavity: Moderate colonic stool content is seen, particularly in the right colon. Segment of decompressed colon in the sigmoid colon. Equivocal thickening within the rectum likely corresponds to the known rectal mass, not well delineated by CT. Appendix is not well seen on the likely candidate is normal. No abdominal or pelvic ascites. Abdominal wall: Small fat-containing inguinal hernias. Trace fat-containing periumbilical hernia. Bladder: Bladder wall thickening, likely cystitis. Bones: No aggressive osseous lesion is seen. IMPRESSION: 1. The known rectal mass is not well seen on CT. 2. No thoracic, abdominal or pelvic lymphadenopathy by size criteria. 3. No new or enlarging suspicious lung nodule is seen. A 7 mm groundglass opacity in the right upper lobe is stable and recommend continued close attention on follow-up. 4. Moderate colonic stool content within segment of decompressed sigmoid colon. Electronically signed by: Gurpreet Juan MD (12/28/2019 2:25 PM) KRIS
--- NOTE | 2019-12-28 16:07 | KCIC ---
STUDY: MRI pelvis with and without contrast INDICATION: Known rectal cancer. Worsening rectal pain. COMPARISON: MRI pelvis with and without IV contrast 03/17/2019 TECHNIQUE: Multiplanar MR imaging of the pelvis performed both prior to and after the intravenous administration of 20 mL Clariscan IV.. FINDING: Tumor location and morphology: Location from Anal Verge: Low Distance of inferior border of tumor to anorectal junction: 2.7 cm Relationship to anterior peritoneal reflection: Below Craniocaudal length: 6 cm Morphology: Semi-circumferential Mucinous: No T-category: T3a Structures with possible invasion (in T4b stage): Genitourinary: No genitourinary Vessels: No major vessel involvement Nerves: No lubrosacral nerve root involvement Pelvic muscles (excluding the floor): None Pelvic floor: No pelvic floor muscle involvement is clearly identified although contour bulge in the right lower rectum (image 31 of series 9) is suspicious for infiltration of the mesorectal fat and abutment close to the right internal sphincter. In addition, Bones: No bone invovlement For low rectal tumors: Invasion of sphincter complex : Not applicable Extent of sphincteric invasion: Not Length of anal canal : 3 cm Extramural Vascular Invasion (EMVI) : No Circumferential resection margin (CRM), for T3 lesions only: Tumor involves peritonealized portion of rectum : No Shortest distance of tumor to mesorectal fascia (or anticipated circumerential resection margin): 0.4 Separate tumor deposit, suspicious lymph node, or EMVI threatening (<= 2mm) or invading (<=1mm) the mesorectal fascia None Suspicious mesorectal lymph nodes and/or tumor deposits: No Number of suspicious lymph nodes: 0 Distance from tumor deposit to mesorectal fascia : 0 cm Extramesorectal lymph nodes None Additional comments: Enlarged prostate, similar to prior. IMPRESSION: 1. Stage T3 N0 2. CRM : Threatened 3. Suspicious node and/or EMVI near CRM: No 4. Sphincter involvement: Present 5. Suspicious extramesorectal nodesNo 6. No additional findings Discussed with Dr. Yang in person at 3:50 pm on 12/28/19 Electronically signed by: Waldemar Olivares MD (12/28/2019 4:04 PM) [id number]
== END ==
LOC: KCIC CT 09:32
PROVIDERS: ATTEND Internal Medicine Hematology & Oncology
DX: C20 Malignant neoplasm of rectum (principal)
CPT/HCPCS: 71260; 72197; 74177; A9575; Q9966; Q9967

== ENCOUNTER 2020-01-11 08:40 | Outpatient (CLI) | payer OTHER ==
[~2020-01-11] VITALS: Ht 193 cm; Wt 104.3 kg
[2020-01-11] VITALS (8 sets, daily range): BP systolic 114–139; BP diastolic 69–92
[~2020-01-11 08:40] MED LIST changes: -GADOTERATE 7.5 MMOL/15ML VIAL. IVP ONE; -IOHEXOL 240 MG/ML 50ML VIAL. PO ONE; -IOHEXOL 300 MG/ML 100ML VIAL. IV ONE
[2020-01-11] MEDS ORDERED: DICY20TA3 PO (08:54)
[2020-01-11] MEDS ORDERED: LACT1CAP29 PO (08:54)
[2020-01-11] MEDS ORDERED: LIDOCAINE 1%/EPI 1:100,000 20 ML VIAL. ONE (09:08)
[2020-01-11] MEDS ORDERED: HEPARIN PF 500 UNIT/5 ML DISP.SYRIN. IVP ONE ×2 (09:09→10:30)
[2020-01-11 09:17] LABS: CREATININE 1.1 mg/dL (0.7-1.3); GFR 70.6; POTASSIUM 4.3 mmol/L (3.5-5.1)
[2020-01-11 09:24] LABS: BASO % 1 % (0-3); EOS # 0.1 x10^3/uL (0.0-0.7); EOS % 3 % (0-3); HEMATOCRIT 42.9 % (39.0-53.0); HEMOGLOBIN 14.8 g/dL (13.0-17.5); LYMPH # 1.4 x10^3/uL (1.0-4.8); LYMPH % 34 % (24-48); MEAN CORPUSCULAR HEMOGLOBIN 34 pg (25-35); MEAN CORPUSCULAR HGB CONC 34 g/dL (31-37); MEAN CORPUSCULAR VOLUME 98 fL (79-100); MONO # 0.4 x10^3/uL (0.0-1.1); MONO % 10 % (0-9); NEUT # 2.1 x10^3/uL (1.8-7.7); NEUT % 51 % (31-73); PLATELET COUNT 202 x10^3/uL (140-400); RED CELL DISTRIBUTION WIDTH 13.7 % (11.5-14.5); WHITE BLOOD COUNT 4.1 x10^3/uL (4.0-11.0)
[2020-01-11] MEDS ORDERED: fentaNYL PF VIAL 100 MCG/2 ML VIAL ONE (09:38)
[2020-01-11] MEDS ORDERED: MIDAZOLAM HCL/PF 2 MG/2 ML VIAL. ONE (09:38)
[2020-01-11] MEDS ORDERED: fentaNYL PF VIAL 100 MCG/2 ML VIAL IV ONE (10:30)
[2020-01-11] MEDS ORDERED: LIDOCAINE 1%/EPI 1:100,000 20 ML VIAL. INJ ONE (10:30)
[2020-01-11] MEDS ORDERED: MIDAZOLAM HCL/PF 2 MG/2 ML VIAL. IV ONE (10:30)
--- NOTE | 2020-01-11 10:43 | PDOC ---
MODERATE SEDATION ASSESSMENT RISKS/ALTERNATIVES Risks/Alternatives Risks and alternatives of this type of sedation and procedure discussed with: RISK/ALTERNATIVES: Patient H & P ON CHART H & P H & P on chart and reviewed for co-morbid conditions and appropriate labs. H&P ON CHART: Yes STATUS PREG STATUS ASSESSED: Yes MEDS/ALLERGIES REVIEWED Meds/Allergies Reviewed Medications and Allergies including time and route of recently administered narcotics and sedatives. MEDS/ALLERGIES REVIEWED: Yes ASA RATING ASA RATING: II AIRWAY ASSESSMENT Airway Assessment Airway patency, oral function limitations, presence of caps, crowns, dentures, partials, and ability to extend neck assessed. AIRWAY ASSESSMENT: Yes MALLAMPATI SCORE MALLAMPATI SCORE: II PRE-SEDATION ASSESSMENT PRE-SEDATION ASSESSMENT: Yes SYL LUCAS MD Jan 11, 2020 10:43
--- NOTE | 2020-01-11 10:44 | PDOC ---
BRIEF OPERATIVE NOTE Pre-Op Diagnosis Rectal Cancer Post-Op Diagnosis same Procedure Performed Port Surgeon Smita Anesthesia Type: Conscious Sedation Findings Port Complications No immediate SYL LUCAS MD Jan 11, 2020 10:44
--- NOTE | 2020-01-11 12:29 | NUR ---
Discharge teaching done. PIV dc'd. Pt discharged to home with family.
--- NOTE | 2020-01-11 15:56 | RAD ---
Procedure: Port-A-Cath placement Clinical Indication: Adult male with rectal cancer requiring chemotherapy Sedation: Conscious sedation was administered with a total intraprocedural [id number] time of 31 minutes. The patient was monitored by a qualified independent observer throughout the time of sedation. Please refer to the medical record for exact doses of medications utilized to achieve moderate sedation. Antibiotics: Antibiotic was administered intravenously within 1 hour of the procedure start time. Exposure: Fluoro Time: 0.4 minutes Images: 1 Contrast: None Sterility: All elements of maximal sterile barrier technique including the use of a cap, mask, sterile gown, sterile gloves, large sterile sheet, appropriate hand hygiene, and 2% chlorhexidine for cutaneous antisepsis (or acceptable alternative antiseptic per current guidelines) were followed for this procedure. Consent: The procedure was explained in its entirety to the patient or the patients designated footwear sales representative by a member of the treatment team, including a discussion of the risks, benefits and commonly accepted alternatives to the procedure, as well as the expected consequences of no therapy whatsoever. Discussion of the risks included, but was not limited to, those that are most frequent and those that are rare but possibly severe or life-threatening, as well as the possibility of unforeseen complications. Technique and Findings: Ultrasound interrogation of the right neck revealed patency and compressibility of the internal jugular vein. A hardcopy ultrasound image was recorded as a 21-gauge micropuncture needle was used to gain access to this vessel. The needle was exchanged over a wire for a peel-away sheath. The skin over the ipsilateral anterior chest wall was then copiously anesthetized with 1% lidocaine plus epinephrine, and a small dermatotomy was made. Blunt dissection techniques were used to create a pocket for the port. The port was then tunneled subcutaneously towards the neck dermatotomy then deployed under fluoroscopic guidance through the peel-away sheath such that the distal tip resided in the proximal right atrium. The port was accessed and found to flush and aspirate with ease. The port was packed with heparin. The pocket was copiously irrigated with sterile saline then closed with deep interrupted and running subcuticular 4-0 Vicryl suture. Dermabond was used to close the neck dermatotomy. Complications: No immediate Impression: 1. Ultrasound-guided right IJ Port-A-Cath placement as described.
== END 2020-01-11 12:40 | disposition home or self-care (01) ==
LOC: INTRAD 08:40
PROVIDERS: ATTEND Internal Medicine Hematology & Oncology
DX: C20 Malignant neoplasm of rectum (principal); E78.00 Pure hypercholesterolemia, unspecified; Z79.899 Other long term (current) drug therapy
CPT/HCPCS: 36415; 36561; 76937; 77001; 80048; 85025; 85610; 85730; 99152; 99153; C1751; C1892; J0690; J1642; J2250; J3010; J3490

== ENCOUNTER → 2020-01-25 | Outpatient (CLI) | payer OTHER ==
[2020-01-11 12:10] VITALS: BP 123/75
[~2020-01-25] MED LIST changes: +DICY20TA3 PO; +LACT1CAP29 PO
[2020-01-25 09:12] LABS: BASO % 1 % (0-3); EOS # 0.2 x10^3/uL (0.0-0.7); EOS % 4 % (0-3); HEMATOCRIT 43.6 % (39.0-53.0); LYMPH # 1.7 x10^3/uL (1.0-4.8); LYMPH % 38 % (24-48); MEAN CORPUSCULAR HEMOGLOBIN 33 pg (25-35); MEAN CORPUSCULAR HGB CONC 34 g/dL (31-37); MEAN CORPUSCULAR VOLUME 97 fL (79-100); MONO # 0.5 x10^3/uL (0.0-1.1); MONO % 10 % (0-9); NEUT # 2.2 x10^3/uL (1.8-7.7); NEUT % 48 % (31-73); PLATELET COUNT 206 x10^3/uL (140-400); RED CELL DISTRIBUTION WIDTH 13.8 % (11.5-14.5); WHITE BLOOD COUNT 4.5 x10^3/uL (4.0-11.0)
[2020-01-25 09:20] LABS: CREATININE 1.1 mg/dL (0.7-1.3); GFR 70.6
[2020-01-25 09:26] LABS: ALBUMIN 3.9 g/dL (3.4-5.0); ALBUMIN/GLOBULIN RATIO 1.1 (1.0-1.7); TOTAL BILIRUBIN 0.4 mg/dL (0.2-1.0); TOTAL PROTEIN 7.6 g/dL (6.4-8.2)
== END ==
LOC: ONCLAB 08:26
PROVIDERS: ATTEND Internal Medicine Hematology & Oncology
DX: C20 Malignant neoplasm of rectum (principal)
CPT/HCPCS: 36415; 80053; 82378; 85025

== ENCOUNTER → 2020-02-01 | Outpatient (CLI) | payer OTHER ==
[2020-01-11 12:10] VITALS: BP 123/75
[2020-02-01 08:55] LABS: BASO % 1 % (0-3); EOS # 0.1 x10^3/uL (0.0-0.7); EOS % 4 % (0-3); HEMATOCRIT 41.7 % (39.0-53.0); HEMOGLOBIN 14.3 g/dL (13.0-17.5); LYMPH % 31 % (24-48); MEAN CORPUSCULAR HEMOGLOBIN 33 pg (25-35); MEAN CORPUSCULAR HGB CONC 34 g/dL (31-37); MEAN CORPUSCULAR VOLUME 97 fL (79-100); MONO # 0.3 x10^3/uL (0.0-1.1); MONO % 11 % (0-9); NEUT # 1.7 x10^3/uL (1.8-7.7); NEUT % 54 % (31-73); PLATELET COUNT 186 x10^3/uL (140-400); RED BLOOD COUNT 4.29 x10^6/uL (4.30-5.70); RED CELL DISTRIBUTION WIDTH 13.5 % (11.5-14.5); WHITE BLOOD COUNT 3.2 x10^3/uL (4.0-11.0)
[2020-02-01 09:07] LABS: CALCIUM 9.3 mg/dL (8.5-10.1); CREATININE 1.1 mg/dL (0.7-1.3); GFR 70.6; POTASSIUM 4.3 mmol/L (3.5-5.1)
[2020-02-01 09:14] LABS: ALBUMIN 3.7 g/dL (3.4-5.0); TOTAL BILIRUBIN 0.5 mg/dL (0.2-1.0); TOTAL PROTEIN 7.5 g/dL (6.4-8.2)
== END ==
LOC: ONCLAB 08:37
PROVIDERS: ATTEND Internal Medicine Hematology & Oncology
DX: C20 Malignant neoplasm of rectum (principal)
CPT/HCPCS: 36415; 80053; 85025

== ENCOUNTER → 2020-02-08 | Outpatient (CLI) | payer OTHER ==
[2020-01-11 12:10] VITALS: BP 123/75
[2020-02-08 08:41] LABS: BASO % 1 % (0-3); EOS # 0.1 x10^3/uL (0.0-0.7); EOS % 4 % (0-3); HEMATOCRIT 42.8 % (39.0-53.0); HEMOGLOBIN 14.5 g/dL (13.0-17.5); LYMPH # 0.5 x10^3/uL (1.0-4.8); LYMPH % 20 % (24-48); MEAN CORPUSCULAR HEMOGLOBIN 33 pg (25-35); MEAN CORPUSCULAR HGB CONC 34 g/dL (31-37); MEAN CORPUSCULAR VOLUME 97 fL (79-100); MONO # 0.3 x10^3/uL (0.0-1.1); MONO % 12 % (0-9); NEUT # 1.7 x10^3/uL (1.8-7.7); NEUT % 63 % (31-73); PLATELET COUNT 147 x10^3/uL (140-400); RED BLOOD COUNT 4.41 x10^6/uL (4.30-5.70); RED CELL DISTRIBUTION WIDTH 13.8 % (11.5-14.5); WHITE BLOOD COUNT 2.7 x10^3/uL (4.0-11.0)
[2020-02-08 08:47] LABS: CALCIUM 8.9 mg/dL (8.5-10.1); CREATININE 1.1 mg/dL (0.7-1.3); GFR 70.6; POTASSIUM 4.5 mmol/L (3.5-5.1)
[2020-02-08 08:52] LABS: ALBUMIN 3.8 g/dL (3.4-5.0); ALBUMIN/GLOBULIN RATIO 1.1 (1.0-1.7); TOTAL BILIRUBIN 0.4 mg/dL (0.2-1.0); TOTAL PROTEIN 7.4 g/dL (6.4-8.2)
== END ==
LOC: ONCLAB 08:19
PROVIDERS: ATTEND Internal Medicine Hematology & Oncology
DX: C20 Malignant neoplasm of rectum (principal)
CPT/HCPCS: 36415; 80053; 85025

== ENCOUNTER → 2020-02-22 | Outpatient (CLI) | payer OTHER ==
[2020-01-11 12:10] VITALS: BP 123/75
[~2020-02-22] MED LIST changes: +ONDA4TAB7 PO
[2020-02-22 08:27] LABS: BASO % 1 % (0-3); EOS # 0.1 x10^3/uL (0.0-0.7); EOS % 6 % (0-3); HEMATOCRIT 40.1 % (39.0-53.0); LYMPH # 0.3 x10^3/uL (1.0-4.8); LYMPH % 16 % (24-48); MEAN CORPUSCULAR HEMOGLOBIN 34 pg (25-35); MEAN CORPUSCULAR HGB CONC 35 g/dL (31-37); MEAN CORPUSCULAR VOLUME 98 fL (79-100); MONO # 0.3 x10^3/uL (0.0-1.1); MONO % 13 % (0-9); NEUT # 1.4 x10^3/uL (1.8-7.7); NEUT % 65 % (31-73); PLATELET COUNT 187 x10^3/uL (140-400); RED BLOOD COUNT 4.11 x10^6/uL (4.30-5.70); RED CELL DISTRIBUTION WIDTH 15.3 % (11.5-14.5); WHITE BLOOD COUNT 2.2 x10^3/uL (4.0-11.0)
[2020-02-22 08:41] LABS: CALCIUM 9.6 mg/dL (8.5-10.1); CREATININE 1.1 mg/dL (0.7-1.3); GFR 70.6; POTASSIUM 4.2 mmol/L (3.5-5.1)
[2020-02-22 09:05] LABS: ALBUMIN 3.7 g/dL (3.4-5.0); TOTAL BILIRUBIN 0.4 mg/dL (0.2-1.0); TOTAL PROTEIN 7.4 g/dL (6.4-8.2)
[2020-02-22 10:37] LABS: % EOS 10 % (0-5); % LYMPHS 20 % (24-48); % MONOS 11 % (0-10); % SEGS 59 % (35-66); NUCLEATED RBC 1; PLT ESTIMATE ADEQUATE (ADEQUATE)
== END ==
LOC: ONCLAB 08:08
PROVIDERS: ATTEND Internal Medicine Hematology & Oncology
DX: C20 Malignant neoplasm of rectum (principal)
CPT/HCPCS: 36415; 80053; 82378; 85007; 85025

== ENCOUNTER 2020-02-23 09:51 | Outpatient (CLI) | payer OTHER ==
[2020-02-23] VITALS (7 sets, daily range): BP systolic 109–131; BP diastolic 69–81
[~2020-02-23] VITALS: Ht 193 cm; Wt 106.1 kg
[~2020-02-23 09:51] MED LIST changes: -ONDA4TAB7 PO
[2020-02-23] MEDS ORDERED: IOHEXOL 240 MG/ML 50ML VIAL. ONE (10:39)
[2020-02-23] MEDS ORDERED: LIDOCAINE 1%/EPI 1:100,000 20 ML VIAL. ONE (11:08)
[2020-02-23] MEDS ORDERED: IOHEXOL 240 MG/ML 50ML VIAL. IV ONE (11:15)
[2020-02-23] MEDS ORDERED: CONTRAST GIVEN. MC PRN (11:15)
[2020-02-23] MEDS ORDERED: MIDAZOLAM HCL/PF 2 MG/2 ML VIAL. ONE (11:26)
[2020-02-23] MEDS ORDERED: fentaNYL PF VIAL 100 MCG/2 ML VIAL ONE (11:27)
[2020-02-23] MEDS ORDERED: diphenhydrAMINE 50 MG/ML VIAL ONE (11:39)
[2020-02-23] MEDS ORDERED: fentaNYL PF VIAL 100 MCG/2 ML VIAL IV ONE (11:45)
[2020-02-23] MEDS ORDERED: diphenhydrAMINE 50 MG/ML VIAL IVP ONE (11:45)
[2020-02-23] MEDS ORDERED: IOHEXOL 240 MG/ML 50ML VIAL. IJ ONE (11:45)
[2020-02-23] MEDS ORDERED: MIDAZOLAM HCL/PF 2 MG/2 ML VIAL. IV ONE (11:45)
[2020-02-23] MEDS ORDERED: LIDOCAINE 1%/EPI 1:100,000 20 ML VIAL. SQ ONE (11:45)
[2020-02-23] MEDS ORDERED: ONDA4TAB7 PO (12:56)
--- NOTE | 2020-02-23 14:30 | NUR ---
pt A&O x4. VSS. tolerating po well. ambulated to BR w/o problem. Dressing over rt chest incision is clean and dry. d/c instructions given, questions answered. out to vehicle per w/c- pt's to drive him home.
--- NOTE | 2020-02-25 09:30 | RAD ---
.. 02/25/2020 7:23 AM Procedure: 1. Fluoroscopic evaluation of pre-existing right internal jugular PowerPort 2. Removal pre-existing port and placement of a new right internal jugular PowerPort. Fluoroscopic and ultrasound guidance used. Clinical Indication: A report will not aspirate. Patient expected to require central venous access for extended cancer treatments. Sedation: Conscious sedation was administered 40 minutes. The patient was monitored by a qualified independent observer throughout the time of sedation. Please refer to the medical record for exact doses of medications utilized to achieve moderate sedation. Fluoroscopy time: 0.9 minutes Dose area product: 11 Gycm2 Consent: The procedure was explained in its entirety to the patient or the patients designated medical service representative by a member of the treatment team, including a discussion of the risks, benefits and commonly accepted alternatives to the procedure, as well as the expected consequences of no therapy whatsoever. Discussion of the risks included, but was not limited to, those that are most frequent and those that are rare but possibly severe or life-threatening, as well as the possibility of unforeseen complications. Technique and Findings: The port and previously accessed using standard sterile barrier technique. Contrast was administered through the pre-existing port under fluoroscopy demonstrating a fibrin sheath. The port would not aspirate. Findings were discussed the patient and the referring oncologist. The decision to remove the pre-existing port and replace it was made. All elements of maximal sterile barrier technique including the use of a cap, mask, sterile gown, sterile gloves, large sterile sheet, appropriate hand hygiene, and 2% chlorhexidine for cutaneous antisepsis (or acceptable alternative antiseptic per current guidelines) were followed for this procedure. Following informed consent, and a timeout procedure, the patient was prepped and draped in the usual sterile fashion. 1% lidocaine was administered for local anesthesia. A small incision was made over the port reservoir. The reservoir and catheter removed intact. Ultrasound interrogation of the right neck revealed patency and compressibility of the right internal jugular vein. A 21-gauge micropuncture was then used to gain access to this vein under ultrasound guidance. A hard copy ultrasound image was recorded. The needle was exchanged over a wire for a sheath. A catheter was tunneled from the prior report reservoir site to the dermatotomy site in the neck. Catheter was advanced through peel-away sheath such that its tip was in the proximal right atrium with the patient supine. The catheter was trimmed to length and connected to the port reservoir, which was placed into the pocket. The port was found to flush and aspirate normally. The pocket was flushed with sterile saline. The wound was closed in layers using 4-0 Vicryl suture. Sterile dressings were applied. Impression: Fluoroscopic evaluation demonstrates a fibrin sheath around the distal catheter of the pre-existing right internal jugular PowerPort. The pre-existing port was removed and a new right internal jugular PowerPort was placed.
== END 2020-02-23 14:30 | disposition home or self-care (01) ==
LOC: INTRAD 09:51
PROVIDERS: ATTEND Internal Medicine Hematology & Oncology
DX: Z45.2 Encounter for adjustment and management of vascular access device (principal); Z79.899 Other long term (current) drug therapy; Z98.890 Other specified postprocedural states; Z72.89 Other problems related to lifestyle; Z85.038 Personal history of other malignant neoplasm of large intestine
CPT/HCPCS: 36561; 36590; 76937; 77001; 99152; 99153; C1751; C1892; J0690; J1200; J2250; J3010; J3490; Q9966; 36598

== ENCOUNTER → 2020-02-29 | Outpatient (CLI) | payer OTHER ==
[2020-02-23 13:45] VITALS: BP 109/69
[~2020-02-29] MED LIST changes: +ONDA4TAB7 PO
[2020-02-29 08:42] LABS: BASO % 2 % (0-3); EOS # 0.2 x10^3/uL (0.0-0.7); EOS % 10 % (0-3); HEMATOCRIT 40.2 % (39.0-53.0); HEMOGLOBIN 13.9 g/dL (13.0-17.5); LYMPH # 0.2 x10^3/uL (1.0-4.8); LYMPH % 11 % (24-48); MEAN CORPUSCULAR HEMOGLOBIN 34 pg (25-35); MEAN CORPUSCULAR HGB CONC 35 g/dL (31-37); MEAN CORPUSCULAR VOLUME 98 fL (79-100); MONO # 0.3 x10^3/uL (0.0-1.1); MONO % 14 % (0-9); NEUT # 1.4 x10^3/uL (1.8-7.7); NEUT % 64 % (31-73); PLATELET COUNT 192 x10^3/uL (140-400); RED BLOOD COUNT 4.08 x10^6/uL (4.30-5.70); RED CELL DISTRIBUTION WIDTH 16.2 % (11.5-14.5); WHITE BLOOD COUNT 2.2 x10^3/uL (4.0-11.0)
[2020-02-29 09:07] LABS: CALCIUM 9.1 mg/dL (8.5-10.1); CREATININE 1.1 mg/dL (0.7-1.3); GFR 70.6; POTASSIUM 4.2 mmol/L (3.5-5.1)
[2020-02-29 09:11] LABS: ALBUMIN 3.6 g/dL (3.4-5.0); TOTAL BILIRUBIN 0.3 mg/dL (0.2-1.0); TOTAL PROTEIN 7.2 g/dL (6.4-8.2)
== END ==
LOC: ONCLAB 08:28
PROVIDERS: ATTEND Internal Medicine Hematology & Oncology
DX: C20 Malignant neoplasm of rectum (principal)
CPT/HCPCS: 36415; 80053; 82378; 85025

== ENCOUNTER → 2020-03-02 | Outpatient (CLI) | payer OTHER ==
[2020-02-23 13:45] VITALS: BP 109/69
[2020-03-02 13:29] LABS: BASO % 1 % (0-3); EOS # 0.2 x10^3/uL (0.0-0.7); EOS % 9 % (0-3); HEMATOCRIT 39.1 % (39.0-53.0); HEMOGLOBIN 13.6 g/dL (13.0-17.5); LYMPH # 0.3 x10^3/uL (1.0-4.8); LYMPH % 15 % (24-48); MEAN CORPUSCULAR HEMOGLOBIN 34 pg (25-35); MEAN CORPUSCULAR HGB CONC 35 g/dL (31-37); MEAN CORPUSCULAR VOLUME 98 fL (79-100); MONO # 0.3 x10^3/uL (0.0-1.1); MONO % 16 % (0-9); NEUT # 1.3 x10^3/uL (1.8-7.7); NEUT % 59 % (31-73); PLATELET COUNT 180 x10^3/uL (140-400); RED BLOOD COUNT 3.99 x10^6/uL (4.30-5.70); RED CELL DISTRIBUTION WIDTH 16.6 % (11.5-14.5); WHITE BLOOD COUNT 2.2 x10^3/uL (4.0-11.0)
[2020-03-02 13:31] LABS: CALCIUM 9.1 mg/dL (8.5-10.1); CREATININE 1.1 mg/dL (0.7-1.3); GFR 70.6; POTASSIUM 4.2 mmol/L (3.5-5.1)
[2020-03-02 13:37] LABS: ALBUMIN 3.7 g/dL (3.4-5.0); ALBUMIN/GLOBULIN RATIO 1.1 (1.0-1.7); TOTAL BILIRUBIN 0.4 mg/dL (0.2-1.0); TOTAL PROTEIN 7.2 g/dL (6.4-8.2)
[2020-03-02 14:42] LABS: % BASOS 2 % (0-3); % EOS 11 % (0-5); % LYMPHS 15 % (24-48); % MONOS 14 % (0-10); % SEGS 58 % (35-66)
[2020-03-02 14:46] LABS: PLT ESTIMATE ADEQUATE (ADEQUATE); POLYCHROMASIA SLIGHT; TOXIC GRANULATION SLIGHT
== END ==
LOC: ONCLAB 13:03
PROVIDERS: ATTEND Internal Medicine Hematology & Oncology
DX: C20 Malignant neoplasm of rectum (principal)
CPT/HCPCS: 36415; 80053; 85007; 85025

== ENCOUNTER → 2020-03-14 | Outpatient (CLI) | payer OTHER ==
[2020-02-23 13:45] VITALS: BP 109/69
[2020-03-14 10:39] LABS: CREATININE 1.1 mg/dL (0.7-1.3); GFR 70.6
[2020-03-14 10:41] LABS: BASO % 1 % (0-3); EOS # 0.2 x10^3/uL (0.0-0.7); EOS % 7 % (0-3); HEMATOCRIT 38.6 % (39.0-53.0); HEMOGLOBIN 13.4 g/dL (13.0-17.5); LYMPH # 0.4 x10^3/uL (1.0-4.8); LYMPH % 17 % (24-48); MEAN CORPUSCULAR HEMOGLOBIN 34 pg (25-35); MEAN CORPUSCULAR HGB CONC 35 g/dL (31-37); MEAN CORPUSCULAR VOLUME 98 fL (79-100); MONO # 0.4 x10^3/uL (0.0-1.1); MONO % 14 % (0-9); NEUT # 1.6 x10^3/uL (1.8-7.7); NEUT % 63 % (31-73); PLATELET COUNT 193 x10^3/uL (140-400); RED BLOOD COUNT 3.93 x10^6/uL (4.30-5.70); RED CELL DISTRIBUTION WIDTH 16.4 % (11.5-14.5); WHITE BLOOD COUNT 2.6 x10^3/uL (4.0-11.0)
[2020-03-14 10:47] LABS: ALBUMIN 3.7 g/dL (3.4-5.0); TOTAL BILIRUBIN 0.3 mg/dL (0.2-1.0); TOTAL PROTEIN 7.3 g/dL (6.4-8.2)
== END ==
LOC: ONCLAB 10:03
PROVIDERS: ATTEND Internal Medicine Hematology & Oncology
DX: C20 Malignant neoplasm of rectum (principal)
CPT/HCPCS: 36415; 80053; 85025

== ENCOUNTER → 2020-04-11 | Outpatient (CLI) | payer OTHER ==
[2020-02-23 13:45] VITALS: BP 109/69
[~2020-04-11] MED LIST changes: +GADOTERATE 7.5 MMOL/15ML VIAL. IVP ONE
--- NOTE | 2020-04-13 16:11 | KCIC ---
Exam: MRI pelvis without and with contrast INDICATION: Rectal cancer follow-up status post chemotherapy and radiation 6 weeks ago TECHNIQUE: Multiplanar, multisequence imaging is performed according to the routine rectal cancer [facility] ging protocol. IV CONTRAST: Comparisons: MRI 12/28/2019 FINDINGS: There is diffuse wall thickening and mucosal hyperenhancement diffusely involving the mid and lower r ectum, which may be in part be secondary to posttreatment change. Overall there is underdistention of the rectum which also limits the evaluation. RECTAL MASS: Evaluation is limited secondary to above factors Circumferentially involving the mid and lower rectum, with a craniocaudal dimension of approximately 5.9 cm Appearance on the T2-weighted images: Predominantly solid lesion with intermediate signal intensity ( SI), between that of skeletal muscle Distance of the lower edge of the tumor to the anal verge: 2.3 cm. - Low Third (<5 cm) - Middle Third (5-10 cm) - Upper Third (>10 cm) Circumference of the rectum involved: 100% of total% Relationship of tumor/invasion of sphincteric complex or puborectalis muscle: Not involved Relationship of tumor to adjacent pelvic organs: No invasion Relationship to mesorectal fascia (Circumferential Resection Margin): No invasion Extramural vascular invasion: None identified T-stage of the tumor: T1 or T2 Lymph Nodes: None Bony Metastases: None REMAINING PELVIS: Unremarkable IMPRESSION: 1. Posttreatment changes at the mid and lower rectum with interval decrease in size of the rectal tu mor which is either T1 or T2. No evidence for involvement of the Circumferential resection margin. 2. No abnormal lymph nodes or evidence for metastatic disease identified in the pelvis. Electronically signed by: Marita Guerra MD (04/13/2020 4:09 PM) [facility]
== END ==
LOC: KCIC MRI 08:30
PROVIDERS: ATTEND Internal Medicine Hematology & Oncology
DX: C20 Malignant neoplasm of rectum (principal); J34.89 Other specified disorders of nose and nasal sinuses
CPT/HCPCS: 72197; A9575

== ENCOUNTER → 2020-04-12 | Outpatient (CLI) | payer OTHER ==
[2020-02-23 13:45] VITALS: BP 109/69
[~2020-04-12] MED LIST changes: -GADOTERATE 7.5 MMOL/15ML VIAL. IVP ONE
[2020-04-12 11:38] LABS: BASO % 1 % (0-3); EOS # 0.1 x10^3/uL (0.0-0.7); EOS % 4 % (0-3); LYMPH # 0.4 x10^3/uL (1.0-4.8); LYMPH % 19 % (24-48); MEAN CORPUSCULAR HEMOGLOBIN 34 pg (25-35); MEAN CORPUSCULAR HGB CONC 34 g/dL (31-37); MEAN CORPUSCULAR VOLUME 101 fL (79-100); MONO # 0.3 x10^3/uL (0.0-1.1); MONO % 14 % (0-9); NEUT # 1.4 x10^3/uL (1.8-7.7); NEUT % 62 % (31-73); PLATELET COUNT 193 x10^3/uL (140-400); RED BLOOD COUNT 3.78 x10^6/uL (4.30-5.70); RED CELL DISTRIBUTION WIDTH 15.5 % (11.5-14.5); WHITE BLOOD COUNT 2.2 x10^3/uL (4.0-11.0)
[2020-04-12 11:44] LABS: CALCIUM 9.2 mg/dL (8.5-10.1); CREATININE 1.1 mg/dL (0.7-1.3); GFR 70.6
[2020-04-12 11:50] LABS: ALBUMIN 3.7 g/dL (3.4-5.0); TOTAL BILIRUBIN 0.3 mg/dL (0.2-1.0); TOTAL PROTEIN 7.3 g/dL (6.4-8.2)
== END ==
LOC: ONCLAB 11:22
PROVIDERS: ATTEND Internal Medicine Hematology & Oncology
DX: C20 Malignant neoplasm of rectum (principal)
CPT/HCPCS: 36415; 80053; 85025

== ENCOUNTER → 2020-05-13 | Outpatient (CLI) | payer OTHER ==
[2020-02-23 13:45] VITALS: BP 109/69
[2020-05-13 10:59] LABS: GFR 78.8; POTASSIUM 4.3 mmol/L (3.5-5.1)
[2020-05-13 11:05] LABS: ALBUMIN 3.7 g/dL (3.4-5.0); TOTAL BILIRUBIN 0.4 mg/dL (0.2-1.0); TOTAL PROTEIN 7.3 g/dL (6.4-8.2)
[2020-05-13 11:11] LABS: BASO % 1 % (0-3); EOS # 0.1 x10^3/uL (0.0-0.7); EOS % 5 % (0-3); HEMATOCRIT 39.6 % (39.0-53.0); HEMOGLOBIN 13.4 g/dL (13.0-17.5); LYMPH # 0.5 x10^3/uL (1.0-4.8); LYMPH % 15 % (24-48); MEAN CORPUSCULAR HEMOGLOBIN 34 pg (25-35); MEAN CORPUSCULAR HGB CONC 34 g/dL (31-37); MEAN CORPUSCULAR VOLUME 101 fL (79-100); MONO # 0.4 x10^3/uL (0.0-1.1); MONO % 12 % (0-9); NEUT # 2.2 x10^3/uL (1.8-7.7); NEUT % 68 % (31-73); PLATELET COUNT 169 x10^3/uL (140-400); RED BLOOD COUNT 3.92 x10^6/uL (4.30-5.70); WHITE BLOOD COUNT 3.2 x10^3/uL (4.0-11.0)
== END ==
LOC: ONCLAB 09:49
PROVIDERS: ATTEND Internal Medicine Hematology & Oncology
DX: C20 Malignant neoplasm of rectum (principal)
CPT/HCPCS: 80053; 82378; 85025

== ENCOUNTER → 2020-07-05 | Outpatient (CLI) | payer OTHER ==
[2020-02-23 13:45] VITALS: BP 109/69
[2020-07-05 10:19] LABS: BASO % 1 % (0-3); EOS # 0.1 x10^3/uL (0.0-0.7); EOS % 4 % (0-3); HEMATOCRIT 41.2 % (39.0-53.0); HEMOGLOBIN 14.1 g/dL (13.0-17.5); LYMPH # 0.7 x10^3/uL (1.0-4.8); LYMPH % 23 % (24-48); MEAN CORPUSCULAR HEMOGLOBIN 33 pg (25-35); MEAN CORPUSCULAR HGB CONC 34 g/dL (31-37); MEAN CORPUSCULAR VOLUME 97 fL (79-100); MONO # 0.4 x10^3/uL (0.0-1.1); MONO % 14 % (0-9); NEUT # 1.7 x10^3/uL (1.8-7.7); NEUT % 59 % (31-73); PLATELET COUNT 161 x10^3/uL (140-400); RED BLOOD COUNT 4.23 x10^6/uL (4.30-5.70); RED CELL DISTRIBUTION WIDTH 13.8 % (11.5-14.5); WHITE BLOOD COUNT 2.9 x10^3/uL (4.0-11.0)
[2020-07-05 10:34] LABS: CALCIUM 8.5 mg/dL (8.5-10.1); GFR 78.8; POTASSIUM 4.3 mmol/L (3.5-5.1)
[2020-07-05 10:40] LABS: ALBUMIN 3.6 g/dL (3.4-5.0); TOTAL BILIRUBIN 0.3 mg/dL (0.2-1.0); TOTAL PROTEIN 7.2 g/dL (6.4-8.2)
== END ==
LOC: ONCLAB 09:09
PROVIDERS: ATTEND Internal Medicine Hematology & Oncology
DX: C20 Malignant neoplasm of rectum (principal)
CPT/HCPCS: 36415; 80053; 85025

== ENCOUNTER → 2020-07-12 | Outpatient (CLI) | payer OTHER ==
[2020-02-23 13:45] VITALS: BP 109/69
[2020-07-12 10:18] LABS: BASO % 1 % (0-3); EOS # 0.1 x10^3/uL (0.0-0.7); EOS % 5 % (0-3); HEMOGLOBIN 14.1 g/dL (13.0-17.5); LYMPH # 0.6 x10^3/uL (1.0-4.8); LYMPH % 22 % (24-48); MEAN CORPUSCULAR HEMOGLOBIN 34 pg (25-35); MEAN CORPUSCULAR HGB CONC 34 g/dL (31-37); MEAN CORPUSCULAR VOLUME 98 fL (79-100); MONO # 0.3 x10^3/uL (0.0-1.1); MONO % 13 % (0-9); NEUT # 1.5 x10^3/uL (1.8-7.7); NEUT % 59 % (31-73); PLATELET COUNT 170 x10^3/uL (140-400); RED BLOOD COUNT 4.16 x10^6/uL (4.30-5.70); RED CELL DISTRIBUTION WIDTH 14.1 % (11.5-14.5); WHITE BLOOD COUNT 2.5 x10^3/uL (4.0-11.0)
[2020-07-12 10:30] LABS: CALCIUM 8.6 mg/dL (8.5-10.1); CREATININE 1.1 mg/dL (0.7-1.3); GFR 70.6; POTASSIUM 4.2 mmol/L (3.5-5.1)
[2020-07-12 10:36] LABS: ALBUMIN 3.5 g/dL (3.4-5.0); ALBUMIN/GLOBULIN RATIO 0.9 (1.0-1.7); TOTAL BILIRUBIN 0.3 mg/dL (0.2-1.0); TOTAL PROTEIN 7.2 g/dL (6.4-8.2)
== END ==
LOC: ONCLAB 09:50
PROVIDERS: ATTEND Internal Medicine Hematology & Oncology
DX: C20 Malignant neoplasm of rectum (principal)
CPT/HCPCS: 36415; 80053; 82378; 85025

== ENCOUNTER → 2020-07-19 | Outpatient (CLI) | payer OTHER ==
[2020-02-23 13:45] VITALS: BP 109/69
[2020-07-19 15:32] LABS: BASO % 1 % (0-3); EOS # 0.2 x10^3/uL (0.0-0.7); EOS % 8 % (0-3); HEMATOCRIT 36.7 % (39.0-53.0); HEMOGLOBIN 13.2 g/dL (13.0-17.5); LYMPH # 0.4 x10^3/uL (1.0-4.8); LYMPH % 19 % (24-48); MEAN CORPUSCULAR HEMOGLOBIN 34 pg (25-35); MEAN CORPUSCULAR HGB CONC 36 g/dL (31-37); MEAN CORPUSCULAR VOLUME 95 fL (79-100); MONO # 0.2 x10^3/uL (0.0-1.1); MONO % 7 % (0-9); NEUT # 1.5 x10^3/uL (1.8-7.7); NEUT % 66 % (31-73); PLATELET COUNT 164 x10^3/uL (140-400); RED BLOOD COUNT 3.86 x10^6/uL (4.30-5.70); RED CELL DISTRIBUTION WIDTH 13.8 % (11.5-14.5); WHITE BLOOD COUNT 2.3 x10^3/uL (4.0-11.0)
[2020-07-19 15:50] LABS: CALCIUM 8.2 mg/dL (8.5-10.1); GFR 78.8; POTASSIUM 4.2 mmol/L (3.5-5.1)
[2020-07-19 15:56] LABS: ALBUMIN 3.6 g/dL (3.4-5.0); ALBUMIN/GLOBULIN RATIO 1.2 (1.0-1.7); TOTAL BILIRUBIN 0.2 mg/dL (0.2-1.0); TOTAL PROTEIN 6.6 g/dL (6.4-8.2)
== END ==
LOC: ONCLAB 09:10
PROVIDERS: ATTEND Physician Assistant
DX: C20 Malignant neoplasm of rectum (principal)
CPT/HCPCS: 36415; 80053; 85025

== ENCOUNTER → 2020-07-26 | Outpatient (CLI) | payer OTHER ==
[2020-02-23 13:45] VITALS: BP 109/69
[2020-07-26 08:32] LABS: BASO % 1 % (0-3); EOS # 0.2 x10^3/uL (0.0-0.7); EOS % 9 % (0-3); HEMATOCRIT 39.2 % (39.0-53.0); HEMOGLOBIN 13.7 g/dL (13.0-17.5); LYMPH # 0.6 x10^3/uL (1.0-4.8); LYMPH % 33 % (24-48); MEAN CORPUSCULAR HEMOGLOBIN 34 pg (25-35); MEAN CORPUSCULAR HGB CONC 35 g/dL (31-37); MEAN CORPUSCULAR VOLUME 97 fL (79-100); MONO # 0.5 x10^3/uL (0.0-1.1); MONO % 26 % (0-9); NEUT # 0.6 x10^3/uL (1.8-7.7); NEUT % 31 % (31-73); PLATELET COUNT 165 x10^3/uL (140-400); RED BLOOD COUNT 4.04 x10^6/uL (4.30-5.70); RED CELL DISTRIBUTION WIDTH 14.4 % (11.5-14.5)
[2020-07-26 08:48] LABS: CALCIUM 8.6 mg/dL (8.5-10.1); CREATININE 1.1 mg/dL (0.7-1.3); GFR 70.6
[2020-07-26 08:50] LABS: WHITE BLOOD COUNT 1.8 x10^3/uL (4.0-11.0)
[2020-07-26 08:54] LABS: ALBUMIN 3.4 g/dL (3.4-5.0); ALBUMIN/GLOBULIN RATIO 0.9 (1.0-1.7); TOTAL BILIRUBIN 0.3 mg/dL (0.2-1.0)
[2020-07-26 12:57] LABS: % ATYL 5 % (0-0); % BANDS 6 % (0-9); % BASOS 2 % (0-3); % EOS 5 % (0-5); % LYMPHS 32 % (24-48); % MONOS 18 % (0-10); % MYELOS 2 % (0-0); % SEGS 30 % (35-66); PLT ESTIMATE ADEQUATE (ADEQUATE)
== END ==
LOC: ONCLAB 08:05
PROVIDERS: ATTEND Internal Medicine Hematology & Oncology
DX: C20 Malignant neoplasm of rectum (principal)
CPT/HCPCS: 36415; 80053; 82378; 85007; 85025

== ENCOUNTER → 2020-08-02 | Outpatient (CLI) | payer OTHER ==
[2020-02-23 13:45] VITALS: BP 109/69
[2020-08-02 08:43] LABS: BASO % 0 % (0-3); EOS # 0.1 x10^3/uL (0.0-0.7); EOS % 1 % (0-3); HEMATOCRIT 39.3 % (39.0-53.0); HEMOGLOBIN 13.5 g/dL (13.0-17.5); LYMPH # 0.9 x10^3/uL (1.0-4.8); LYMPH % 4 % (24-48); MEAN CORPUSCULAR HEMOGLOBIN 33 pg (25-35); MEAN CORPUSCULAR HGB CONC 34 g/dL (31-37); MEAN CORPUSCULAR VOLUME 97 fL (79-100); MONO # 1.2 x10^3/uL (0.0-1.1); MONO % 5 % (0-9); NEUT # 21.8 x10^3/uL (1.8-7.7); NEUT % 91 % (31-73); PLATELET COUNT 139 x10^3/uL (140-400); RED BLOOD COUNT 4.06 x10^6/uL (4.30-5.70); RED CELL DISTRIBUTION WIDTH 14.7 % (11.5-14.5)
[2020-08-02 08:47] LABS: CALCIUM 8.7 mg/dL (8.5-10.1); CREATININE 1.1 mg/dL (0.7-1.3); GFR 70.6; POTASSIUM 4.3 mmol/L (3.5-5.1)
[2020-08-02 08:53] LABS: ALBUMIN 3.7 g/dL (3.4-5.0); TOTAL BILIRUBIN 0.4 mg/dL (0.2-1.0); TOTAL PROTEIN 7.5 g/dL (6.4-8.2)
[2020-08-02 11:11] LABS: % BANDS 11 % (0-9); % EOS 1 % (0-5); % LYMPHS 6 % (24-48); % MONOS 2 % (0-10); % SEGS 80 % (35-66)
[2020-08-02 11:12] LABS: ANISOCYTOSIS PRESENT; PLT ESTIMATE DECREASED (ADEQUATE)
== END ==
LOC: ONCLAB 08:11
PROVIDERS: ATTEND Internal Medicine Hematology & Oncology
DX: C20 Malignant neoplasm of rectum (principal)
CPT/HCPCS: 36415; 80053; 82378; 85007; 85025

== ENCOUNTER → 2020-08-09 | Outpatient (CLI) | payer OTHER ==
[2020-02-23 13:45] VITALS: BP 109/69
[2020-08-09 09:43] LABS: BASO % 1 % (0-3); EOS % 3 % (0-3); HEMATOCRIT 34.3 % (39.0-53.0); HEMOGLOBIN 12.1 g/dL (13.0-17.5); LYMPH # 0.4 x10^3/uL (1.0-4.8); LYMPH % 30 % (24-48); MEAN CORPUSCULAR HEMOGLOBIN 34 pg (25-35); MEAN CORPUSCULAR HGB CONC 35 g/dL (31-37); MEAN CORPUSCULAR VOLUME 95 fL (79-100); MONO # 0.1 x10^3/uL (0.0-1.1); MONO % 7 % (0-9); NEUT # 0.8 x10^3/uL (1.8-7.7); NEUT % 60 % (31-73); PLATELET COUNT 126 x10^3/uL (140-400); RED CELL DISTRIBUTION WIDTH 14.5 % (11.5-14.5)
[2020-08-09 09:45] LABS: WHITE BLOOD COUNT 1.4 x10^3/uL (4.0-11.0)
[2020-08-09 09:57] LABS: CALCIUM 8.7 mg/dL (8.5-10.1); CREATININE 0.9 mg/dL (0.7-1.3)
[2020-08-09 10:03] LABS: ALBUMIN 3.9 g/dL (3.4-5.0); ALBUMIN/GLOBULIN RATIO 1.2 (1.0-1.7); TOTAL BILIRUBIN 0.4 mg/dL (0.2-1.0); TOTAL PROTEIN 7.1 g/dL (6.4-8.2)
[2020-08-09 10:43] LABS: % BASOS 1 % (0-3); % EOS 1 % (0-5); % LYMPHS 34 % (24-48); % MONOS 2 % (0-10); % SEGS 62 % (35-66); PLT ESTIMATE DECREASED (ADEQUATE)
== END ==
LOC: ONCLAB 09:03
PROVIDERS: ATTEND Physician Assistant
DX: C20 Malignant neoplasm of rectum (principal)
CPT/HCPCS: 36415; 80053; 82378; 85007; 85025

== ENCOUNTER → 2020-08-16 | Outpatient (CLI) | payer OTHER ==
[2020-02-23 13:45] VITALS: BP 109/69
[2020-08-16 08:56] LABS: BASO % 1 % (0-3); EOS # 0.1 x10^3/uL (0.0-0.7); EOS % 2 % (0-3); HEMATOCRIT 36.9 % (39.0-53.0); HEMOGLOBIN 12.7 g/dL (13.0-17.5); LYMPH # 0.6 x10^3/uL (1.0-4.8); LYMPH % 17 % (24-48); MEAN CORPUSCULAR HEMOGLOBIN 34 pg (25-35); MEAN CORPUSCULAR HGB CONC 34 g/dL (31-37); MEAN CORPUSCULAR VOLUME 98 fL (79-100); MONO # 0.6 x10^3/uL (0.0-1.1); MONO % 17 % (0-9); NEUT # 2.2 x10^3/uL (1.8-7.7); NEUT % 64 % (31-73); PLATELET COUNT 162 x10^3/uL (140-400); RED BLOOD COUNT 3.79 x10^6/uL (4.30-5.70); RED CELL DISTRIBUTION WIDTH 15.2 % (11.5-14.5)
[2020-08-16 09:00] LABS: CALCIUM 8.4 mg/dL (8.5-10.1); CREATININE 1.2 mg/dL (0.7-1.3); GFR 63.8; POTASSIUM 3.8 mmol/L (3.5-5.1)
[2020-08-16 09:06] LABS: ALBUMIN 3.8 g/dL (3.4-5.0); ALBUMIN/GLOBULIN RATIO 1.3 (1.0-1.7); TOTAL BILIRUBIN 0.3 mg/dL (0.2-1.0); TOTAL PROTEIN 6.8 g/dL (6.4-8.2)
[2020-08-16 10:00] LABS: WHITE BLOOD COUNT 3.5 x10^3/uL (4.0-11.0)
== END ==
LOC: ONCLAB 08:12
PROVIDERS: ATTEND Physician Assistant
DX: C20 Malignant neoplasm of rectum (principal)
CPT/HCPCS: 36415; 80053; 85025

== ENCOUNTER → 2020-08-26 | Outpatient (CLI) | payer OTHER ==
[2020-02-23 13:45] VITALS: BP 109/69
[2020-08-26 09:13] LABS: BASO % 0 % (0-3); EOS # 0.1 x10^3/uL (0.0-0.7); EOS % 2 % (0-3); HEMATOCRIT 35.9 % (39.0-53.0); HEMOGLOBIN 12.6 g/dL (13.0-17.5); LYMPH # 0.5 x10^3/uL (1.0-4.8); LYMPH % 7 % (24-48); MEAN CORPUSCULAR HEMOGLOBIN 34 pg (25-35); MEAN CORPUSCULAR HGB CONC 35 g/dL (31-37); MEAN CORPUSCULAR VOLUME 96 fL (79-100); MONO # 0.8 x10^3/uL (0.0-1.1); MONO % 13 % (0-9); NEUT # 4.8 x10^3/uL (1.8-7.7); NEUT % 77 % (31-73); PLATELET COUNT 158 x10^3/uL (140-400); RED BLOOD COUNT 3.73 x10^6/uL (4.30-5.70); WHITE BLOOD COUNT 6.2 x10^3/uL (4.0-11.0)
[2020-08-26 09:16] LABS: CALCIUM 8.5 mg/dL (8.5-10.1); CREATININE 1.1 mg/dL (0.7-1.3); GFR 70.6
[2020-08-26 09:22] LABS: ALBUMIN 3.9 g/dL (3.4-5.0); ALBUMIN/GLOBULIN RATIO 1.2 (1.0-1.7); TOTAL BILIRUBIN 0.3 mg/dL (0.2-1.0); TOTAL PROTEIN 7.1 g/dL (6.4-8.2)
[2020-08-26 14:28] LABS: BILIRUBIN,URINE NEGATIVE (NEG); CLARITY,URINE CLEAR; COLOR,URINE YELLOW; NITRITE,URINE NEGATIVE (NEG); PH,URINE 5.5 (<5.0-8.0); PROTEIN,URINE NEGATIVE (NEG-TRACE); UROBILINOGEN,URINE 0.2 mg/dL (0.2 mg/dL)
[2020-08-26 14:40] LABS: BACTERIA,URINE 0 /HPF (0-FEW); RBC,URINE 0 /HPF (0-2); WBC,URINE 0 /HPF (0-4)
== END ==
LOC: ONCLAB 08:50
PROVIDERS: ATTEND Internal Medicine Hematology & Oncology
DX: C20 Malignant neoplasm of rectum (principal)
CPT/HCPCS: 36415; 80053; 81001; 83735; 85025

== ENCOUNTER → 2020-08-26 | Outpatient (CLI) | payer OTHER ==
[2020-02-23 13:45] VITALS: BP 109/69
[~2020-08-26] MED LIST changes: +IOHEXOL 240 MG/ML 50ML VIAL. PO ONE; +IOHEXOL 300 MG/ML 100ML VIAL. PO ONE
--- NOTE | 2020-08-26 14:42 | RAD ---
CT CHEST+ABD+PELVIS W History: Restaging rectal cancer. Comparison: CT chest abdomen and pelvis 12/28/2019. Pelvic MRI 04/11/2020. Technique: CT of the chest, abdomen and pelvis with oral and intravenous contrast. Findings: Devices: Accessed right chest Mediport catheter with tip terminating in the right atrium. Pulmonary arteries: No large or central pulmonary embolism. Aorta and great vessels: No aneurysm of the aortic arch or thoracic aorta is seen. No atherosclerotic calcification. Heart: The heart is normal in size. There is no pericardial effusion. No coronary artery calcificatio n. Thyroid: No significant abnormalities. Mediastinum and lorenzo: Unchanged 1.6 x 1.5 cm anterior mediastinal rounded cystic fluid collection. No enlarged adenopathy. Esophagus: The visualized esophagus is normal. Airways: The visualized tracheobronchial tree is normal. Lungs: Stable subtle 8 mm right upper lobe groundglass opacity (axial 17) and lingular 7 mm nodular c onsolidation (axial 47). Bibasilar atelectasis. Pleural space: There is no pneumothorax or pleural effusion. General abdomen: No ascites. No free air. Liver : Normal size of relative hypoattenuation however evaluation for steatosis is confounded by con trast enhancement. No masses seen. Gallbladder/Biliary Tree: Normal gallbladder. No intrahepatic or extrahepatic biliary ductal dilatati on. Pancreas: Normal. Spleen: Normal in size and attenuation. Adrenal glands: Normal. Kidneys: No hydronephrosis or hydroureter. No renal masses identified. Gastrointestinal: Unremarkable stomach, small bowel and appendix. Again there is marked wall thickeni ng consistent with known cancer, however better appreciated on comparison MRI. Mesorectal fat is unin volved. Lymph nodes: No lymphadenopathy. Vessels: Unremarkable. Pelvic Organs: Unremarkable reproductive organs. The bladder is unremarkable. Soft tissues: Unremarkable. Bones: No acute or aggressive lesions. Impression: 1. History of rectal cancer without evidence of metastatic disease in the chest, abdomen and pelvis. Rectal wall thickening redemonstrated by CT without local progression. 2. Stable right upper lobe groundglass and lingular pulmonary nodules. ------ Exposure: One or more of the following individualized dose reduction techniques were utilized for thi s examination: 1. Automated exposure control 2. Adjustment of the mA and/or kV according to patient size 3. Use of iterative reconstruction technique. Electronically signed by: Asher Braun MD (08/26/2020 2:40 PM) [facility]
== END ==
LOC: CT 10:58
PROVIDERS: ATTEND Physician Assistant
DX: C20 Malignant neoplasm of rectum (principal); J98.11 Atelectasis; R91.8 Other nonspecific abnormal finding of lung field
CPT/HCPCS: 71260; 74177; Q9966; Q9967

== ENCOUNTER → 2020-08-27 | Outpatient (CLI) | payer OTHER ==
[2020-02-23 13:45] VITALS: BP 109/69
[~2020-08-27] MED LIST changes: -IOHEXOL 240 MG/ML 50ML VIAL. PO ONE; -IOHEXOL 300 MG/ML 100ML VIAL. PO ONE
== END ==
LOC: ONCLAB 18:32
PROVIDERS: ATTEND Physician Assistant
DX: C20 Malignant neoplasm of rectum (principal)
CPT/HCPCS: 87045; 87046; 87493; 87505

== ENCOUNTER → 2020-08-30 | Outpatient (CLI) | payer OTHER ==
[2020-02-23 13:45] VITALS: BP 109/69
[2020-08-30 10:02] LABS: BASO % 1 % (0-3); EOS # 0.1 x10^3/uL (0.0-0.7); EOS % 3 % (0-3); HEMATOCRIT 36.4 % (39.0-53.0); HEMOGLOBIN 12.9 g/dL (13.0-17.5); LYMPH # 0.5 x10^3/uL (1.0-4.8); LYMPH % 29 % (24-48); MEAN CORPUSCULAR HEMOGLOBIN 34 pg (25-35); MEAN CORPUSCULAR HGB CONC 36 g/dL (31-37); MEAN CORPUSCULAR VOLUME 96 fL (79-100); MONO # 0.4 x10^3/uL (0.0-1.1); MONO % 23 % (0-9); NEUT # 0.8 x10^3/uL (1.8-7.7); NEUT % 44 % (31-73); PLATELET COUNT 144 x10^3/uL (140-400); RED BLOOD COUNT 3.81 x10^6/uL (4.30-5.70)
[2020-08-30 10:11] LABS: WHITE BLOOD COUNT 1.7 x10^3/uL (4.0-11.0)
[2020-08-30 10:18] LABS: CALCIUM 8.6 mg/dL (8.5-10.1); CREATININE 1.1 mg/dL (0.7-1.3); GFR 70.6; POTASSIUM 3.8 mmol/L (3.5-5.1)
[2020-08-30 10:28] LABS: ALBUMIN 3.7 g/dL (3.4-5.0); ALBUMIN/GLOBULIN RATIO 1.2 (1.0-1.7); TOTAL BILIRUBIN 0.4 mg/dL (0.2-1.0); TOTAL PROTEIN 6.9 g/dL (6.4-8.2)
[2020-08-30 12:30] LABS: % BANDS 9 % (0-9); % EOS 4 % (0-5); % LYMPHS 26 % (24-48); % MONOS 18 % (0-10); % SEGS 43 % (35-66); PLT ESTIMATE ADEQUATE (ADEQUATE)
[2020-08-30 12:31] LABS: ANISOCYTOSIS SLIGHT; POLYCHROMASIA SLIGHT; TEAR DROP CELLS OCC
== END ==
LOC: ONCLAB 08:13
PROVIDERS: ATTEND Internal Medicine Hematology & Oncology
DX: C20 Malignant neoplasm of rectum (principal)
CPT/HCPCS: 36415; 80053; 82378; 85007; 85025

== ENCOUNTER → 2020-09-05 | Outpatient (CLI) | payer OTHER ==
[2020-02-23 13:45] VITALS: BP 109/69
[2020-09-05 10:35] LABS: BASO # 0.1 x10^3/uL (0.0-0.2); BASO % 2 % (0-3); EOS # 0.1 x10^3/uL (0.0-0.7); EOS % 2 % (0-3); HEMATOCRIT 41.2 % (39.0-53.0); HEMOGLOBIN 14.2 g/dL (13.0-17.5); LYMPH # 0.7 x10^3/uL (1.0-4.8); LYMPH % 14 % (24-48); MEAN CORPUSCULAR HEMOGLOBIN 33 pg (25-35); MEAN CORPUSCULAR HGB CONC 34 g/dL (31-37); MEAN CORPUSCULAR VOLUME 97 fL (79-100); MONO # 0.6 x10^3/uL (0.0-1.1); MONO % 13 % (0-9); NEUT # 3.2 x10^3/uL (1.8-7.7); NEUT % 69 % (31-73); PLATELET COUNT 157 x10^3/uL (140-400); RED BLOOD COUNT 4.23 x10^6/uL (4.30-5.70); RED CELL DISTRIBUTION WIDTH 17.2 % (11.5-14.5); WHITE BLOOD COUNT 4.7 x10^3/uL (4.0-11.0)
[2020-09-05 10:48] LABS: CALCIUM 9.1 mg/dL (8.5-10.1); CREATININE 1.1 mg/dL (0.7-1.3); GFR 70.6; POTASSIUM 4.1 mmol/L (3.5-5.1)
[2020-09-05 10:55] LABS: ALBUMIN 4.1 g/dL (3.4-5.0); ALBUMIN/GLOBULIN RATIO 1.2 (1.0-1.7); TOTAL BILIRUBIN 0.5 mg/dL (0.2-1.0); TOTAL PROTEIN 7.5 g/dL (6.4-8.2)
== END ==
LOC: ONCLAB 09:46
PROVIDERS: ATTEND Internal Medicine Hematology & Oncology
DX: C20 Malignant neoplasm of rectum (principal)
CPT/HCPCS: 36415; 80053; 82378; 85025

== ENCOUNTER → 2020-09-20 | Outpatient (CLI) | payer OTHER ==
[2020-02-23 13:45] VITALS: BP 109/69
[~2020-09-20] MED LIST changes: -LACT1CAP29 PO; +LACT1CAP37 PO
[2020-09-20 09:28] LABS: BASO % 1 % (0-3); EOS # 0.2 x10^3/uL (0.0-0.7); EOS % 7 % (0-3); HEMATOCRIT 36.7 % (39.0-53.0); HEMOGLOBIN 12.7 g/dL (13.0-17.5); LYMPH # 0.4 x10^3/uL (1.0-4.8); LYMPH % 20 % (24-48); MEAN CORPUSCULAR HEMOGLOBIN 34 pg (25-35); MEAN CORPUSCULAR HGB CONC 35 g/dL (31-37); MEAN CORPUSCULAR VOLUME 98 fL (79-100); MONO # 0.5 x10^3/uL (0.0-1.1); MONO % 24 % (0-9); NEUT # 1.1 x10^3/uL (1.8-7.7); NEUT % 50 % (31-73); PLATELET COUNT 149 x10^3/uL (140-400); RED BLOOD COUNT 3.76 x10^6/uL (4.30-5.70); WHITE BLOOD COUNT 2.3 x10^3/uL (4.0-11.0)
[2020-09-20 09:38] LABS: CREATININE 1.2 mg/dL (0.7-1.3); GFR 63.8; POTASSIUM 3.7 mmol/L (3.5-5.1)
[2020-09-20 09:45] LABS: ALBUMIN 3.6 g/dL (3.4-5.0); ALBUMIN/GLOBULIN RATIO 1.1 (1.0-1.7); TOTAL BILIRUBIN 0.3 mg/dL (0.2-1.0); TOTAL PROTEIN 6.9 g/dL (6.4-8.2)
== END ==
LOC: ONCLAB 08:46
PROVIDERS: ATTEND Internal Medicine Hematology & Oncology
DX: C20 Malignant neoplasm of rectum (principal)
CPT/HCPCS: 36415; 80053; 82378; 85025

== ENCOUNTER → 2020-09-26 | Outpatient (CLI) | payer OTHER ==
[2020-02-23 13:45] VITALS: BP 109/69
[2020-09-26 11:40] LABS: BASO % 0 % (0-3); EOS # 0.1 x10^3/uL (0.0-0.7); EOS % 4 % (0-3); HEMATOCRIT 41.3 % (39.0-53.0); HEMOGLOBIN 14.2 g/dL (13.0-17.5); LYMPH # 0.7 x10^3/uL (1.0-4.8); LYMPH % 17 % (24-48); MEAN CORPUSCULAR HEMOGLOBIN 34 pg (25-35); MEAN CORPUSCULAR HGB CONC 34 g/dL (31-37); MEAN CORPUSCULAR VOLUME 99 fL (79-100); MONO # 0.5 x10^3/uL (0.0-1.1); MONO % 13 % (0-9); NEUT # 2.6 x10^3/uL (1.8-7.7); NEUT % 66 % (31-73); PLATELET COUNT 187 x10^3/uL (140-400); RED BLOOD COUNT 4.19 x10^6/uL (4.30-5.70)
[2020-09-26 11:45] LABS: CALCIUM 9.4 mg/dL (8.5-10.1); CREATININE 1.3 mg/dL (0.7-1.3); GFR 58.2; POTASSIUM 4.3 mmol/L (3.5-5.1)
[2020-09-26 11:53] LABS: ALBUMIN 4.2 g/dL (3.4-5.0); ALBUMIN/GLOBULIN RATIO 1.1 (1.0-1.7); TOTAL BILIRUBIN 0.4 mg/dL (0.2-1.0); TOTAL PROTEIN 7.9 g/dL (6.4-8.2)
[2020-09-26 13:08] LABS: % BANDS 14 % (0-9); % EOS 4 % (0-5); % LYMPHS 14 % (24-48); % MONOS 10 % (0-10); % SEGS 58 % (35-66); PLT ESTIMATE ADEQUATE (ADEQUATE)
[2020-09-26 13:09] LABS: ANISOCYTOSIS SLIGHT; OVALOCYTES FEW; POLYCHROMASIA SLIGHT; TEAR DROP CELLS FEW
== END ==
LOC: ONCLAB 11:03
PROVIDERS: ATTEND Internal Medicine Hematology & Oncology
DX: C20 Malignant neoplasm of rectum (principal)
CPT/HCPCS: 36415; 80053; 85007; 85025

== ENCOUNTER → 2020-10-03 | Outpatient (CLI) | payer OTHER ==
[2020-02-23 13:45] VITALS: BP 109/69
--- NOTE | 2020-10-03 17:25 | RAD ---
Chest, PA and Lateral: Technique: PA and lateral views of the chest were obtained. History: Cough, rectal cancer. Comparison: 07/10/2019. Findings: The heart and pulmonary vasculature appear within normal limits. The lungs are clear. The pleural ma rgins are clear. Right-sided Port-A-Cath is identified. Impression: No acute chest process is seen. Electronically signed by: Stefan Calderon MD (10/03/2020 5:22 PM) [id number]
== END ==
LOC: RAD 15:42
PROVIDERS: ATTEND Internal Medicine Hematology & Oncology
DX: C20 Malignant neoplasm of rectum (principal); R05 Cough
CPT/HCPCS: 71046

== ENCOUNTER → 2020-10-03 | Outpatient (CLI) | payer OTHER ==
[2020-02-23 13:45] VITALS: BP 109/69
[2020-10-03 14:27] LABS: BASO % 1 % (0-3); EOS # 0.1 x10^3/uL (0.0-0.7); EOS % 2 % (0-3); HEMATOCRIT 38.8 % (39.0-53.0); HEMOGLOBIN 13.5 g/dL (13.0-17.5); LYMPH # 0.4 x10^3/uL (1.0-4.8); LYMPH % 10 % (24-48); MEAN CORPUSCULAR HEMOGLOBIN 35 pg (25-35); MEAN CORPUSCULAR HGB CONC 35 g/dL (31-37); MEAN CORPUSCULAR VOLUME 99 fL (79-100); MONO # 0.3 x10^3/uL (0.0-1.1); MONO % 8 % (0-9); NEUT # 2.7 x10^3/uL (1.8-7.7); NEUT % 80 % (31-73); PLATELET COUNT 137 x10^3/uL (140-400); RED BLOOD COUNT 3.92 x10^6/uL (4.30-5.70); RED CELL DISTRIBUTION WIDTH 16.6 % (11.5-14.5); WHITE BLOOD COUNT 3.4 x10^3/uL (4.0-11.0)
[2020-10-03 14:33] LABS: CALCIUM 8.8 mg/dL (8.5-10.1); CREATININE 1.2 mg/dL (0.7-1.3); GFR 63.8; POTASSIUM 4.1 mmol/L (3.5-5.1)
[2020-10-03 14:39] LABS: ALBUMIN/GLOBULIN RATIO 1.1 (1.0-1.7); TOTAL BILIRUBIN 0.6 mg/dL (0.2-1.0); TOTAL PROTEIN 7.8 g/dL (6.4-8.2)
== END ==
LOC: ONCLAB 09:59
PROVIDERS: ATTEND Internal Medicine Hematology & Oncology
DX: C20 Malignant neoplasm of rectum (principal)
CPT/HCPCS: 36415; 80053; 85025

== ENCOUNTER → 2020-10-10 | Outpatient (CLI) | payer OTHER ==
[2020-02-23 13:45] VITALS: BP 109/69
[2020-10-10 13:17] LABS: BASO % 1 % (0-3); EOS # 0.1 x10^3/uL (0.0-0.7); EOS % 4 % (0-3); HEMOGLOBIN 12.7 g/dL (13.0-17.5); LYMPH # 0.6 x10^3/uL (1.0-4.8); LYMPH % 21 % (24-48); MEAN CORPUSCULAR HEMOGLOBIN 34 pg (25-35); MEAN CORPUSCULAR HGB CONC 34 g/dL (31-37); MEAN CORPUSCULAR VOLUME 99 fL (79-100); MONO # 0.6 x10^3/uL (0.0-1.1); MONO % 21 % (0-9); NEUT # 1.4 x10^3/uL (1.8-7.7); NEUT % 54 % (31-73); PLATELET COUNT 160 x10^3/uL (140-400); RED BLOOD COUNT 3.75 x10^6/uL (4.30-5.70); RED CELL DISTRIBUTION WIDTH 16.4 % (11.5-14.5); WHITE BLOOD COUNT 2.7 x10^3/uL (4.0-11.0)
[2020-10-10 13:24] LABS: CALCIUM 8.9 mg/dL (8.5-10.1); CREATININE 1.1 mg/dL (0.7-1.3); GFR 70.6; POTASSIUM 4.4 mmol/L (3.5-5.1)
[2020-10-10 13:29] LABS: ALBUMIN 3.7 g/dL (3.4-5.0); ALBUMIN/GLOBULIN RATIO 1.1 (1.0-1.7); TOTAL BILIRUBIN 0.2 mg/dL (0.2-1.0); TOTAL PROTEIN 7.1 g/dL (6.4-8.2)
== END ==
LOC: ONCLAB 12:55
PROVIDERS: ATTEND Internal Medicine Hematology & Oncology
DX: C20 Malignant neoplasm of rectum (principal)
CPT/HCPCS: 36415; 80053; 85025

== ENCOUNTER → 2020-10-12 | Outpatient (CLI) | payer OTHER ==
[2020-02-23 13:45] VITALS: BP 109/69
[2020-10-12 10:18] LABS: BASO % 0 % (0-3); EOS # 0.1 x10^3/uL (0.0-0.7); EOS % 1 % (0-3); HEMATOCRIT 37.3 % (39.0-53.0); HEMOGLOBIN 12.7 g/dL (13.0-17.5); LYMPH # 0.7 x10^3/uL (1.0-4.8); LYMPH % 7 % (24-48); MEAN CORPUSCULAR HEMOGLOBIN 34 pg (25-35); MEAN CORPUSCULAR HGB CONC 34 g/dL (31-37); MEAN CORPUSCULAR VOLUME 99 fL (79-100); MONO # 0.5 x10^3/uL (0.0-1.1); MONO % 4 % (0-9); NEUT # 9.5 x10^3/uL (1.8-7.7); NEUT % 88 % (31-73); PLATELET COUNT 174 x10^3/uL (140-400); RED BLOOD COUNT 3.78 x10^6/uL (4.30-5.70); RED CELL DISTRIBUTION WIDTH 16.7 % (11.5-14.5); WHITE BLOOD COUNT 10.8 x10^3/uL (4.0-11.0)
[2020-10-12 10:33] LABS: CALCIUM 8.7 mg/dL (8.5-10.1); CREATININE 1.2 mg/dL (0.7-1.3); GFR 63.8; POTASSIUM 3.9 mmol/L (3.5-5.1)
[2020-10-12 10:38] LABS: ALBUMIN 3.7 g/dL (3.4-5.0); ALBUMIN/GLOBULIN RATIO 1.1 (1.0-1.7); TOTAL BILIRUBIN 0.3 mg/dL (0.2-1.0)
[2020-10-12 12:41] LABS: % BANDS 5 % (0-9); % EOS 1 % (0-5); % LYMPHS 10 % (24-48); % SEGS 84 % (35-66); PLT ESTIMATE ADEQUATE (ADEQUATE)
== END ==
LOC: ONCLAB 10:01
PROVIDERS: ATTEND Internal Medicine Hematology & Oncology
DX: C20 Malignant neoplasm of rectum (principal)
CPT/HCPCS: 36415; 80053; 82378; 85007; 85025

== ENCOUNTER → 2020-10-18 | Outpatient (CLI) | payer OTHER ==
[2020-02-23 13:45] VITALS: BP 109/69
[~2020-10-18] MED LIST changes: +DICY20TA PO; -DICY20TA3 PO
[2020-10-18 13:37] LABS: BASO % 0 % (0-3); EOS # 0.2 x10^3/uL (0.0-0.7); EOS % 1 % (0-3); HEMOGLOBIN 12.5 g/dL (13.0-17.5); LYMPH # 0.7 x10^3/uL (1.0-4.8); LYMPH % 4 % (24-48); MEAN CORPUSCULAR HEMOGLOBIN 33 pg (25-35); MEAN CORPUSCULAR HGB CONC 34 g/dL (31-37); MEAN CORPUSCULAR VOLUME 99 fL (79-100); MONO # 0.5 x10^3/uL (0.0-1.1); MONO % 3 % (0-9); NEUT # 14.2 x10^3/uL (1.8-7.7); NEUT % 91 % (31-73); PLATELET COUNT 145 x10^3/uL (140-400); RED BLOOD COUNT 3.73 x10^6/uL (4.30-5.70); RED CELL DISTRIBUTION WIDTH 16.4 % (11.5-14.5); WHITE BLOOD COUNT 15.6 x10^3/uL (4.0-11.0)
[2020-10-18 13:49] LABS: CALCIUM 8.7 mg/dL (8.5-10.1); GFR 78.8; POTASSIUM 4.4 mmol/L (3.5-5.1)
[2020-10-18 13:55] LABS: ALBUMIN 3.7 g/dL (3.4-5.0); ALBUMIN/GLOBULIN RATIO 1.1 (1.0-1.7); TOTAL BILIRUBIN 0.3 mg/dL (0.2-1.0)
[2020-10-18 14:30] LABS: % BANDS 4 % (0-9); % EOS 2 % (0-5); % LYMPHS 7 % (24-48); % MONOS 1 % (0-10); % SEGS 86 % (35-66); PLT ESTIMATE ADEQUATE (ADEQUATE); TOXIC GRANULATION MOD
== END ==
LOC: ONCLAB 13:21
PROVIDERS: ATTEND Physician Assistant
DX: C20 Malignant neoplasm of rectum (principal)
CPT/HCPCS: 36415; 80053; 85007; 85025

== ENCOUNTER → 2020-10-24 | Outpatient (CLI) | payer OTHER ==
[2020-02-23 13:45] VITALS: BP 109/69
[~2020-10-24] MED LIST changes: -DICY20TA PO; +DICY20TA3 PO
[2020-10-24 11:45] LABS: BASO % 1 % (0-3); EOS # 0.1 x10^3/uL (0.0-0.7); EOS % 6 % (0-3); HEMATOCRIT 38.4 % (39.0-53.0); HEMOGLOBIN 13.1 g/dL (13.0-17.5); LYMPH # 0.4 x10^3/uL (1.0-4.8); LYMPH % 25 % (24-48); MEAN CORPUSCULAR HEMOGLOBIN 34 pg (25-35); MEAN CORPUSCULAR HGB CONC 34 g/dL (31-37); MEAN CORPUSCULAR VOLUME 99 fL (79-100); MONO # 0.4 x10^3/uL (0.0-1.1); MONO % 24 % (0-9); NEUT # 0.7 x10^3/uL (1.8-7.7); NEUT % 44 % (31-73); PLATELET COUNT 127 x10^3/uL (140-400); RED BLOOD COUNT 3.87 x10^6/uL (4.30-5.70); RED CELL DISTRIBUTION WIDTH 16.3 % (11.5-14.5)
[2020-10-24 11:55] LABS: CALCIUM 9.1 mg/dL (8.5-10.1); CREATININE 1.2 mg/dL (0.7-1.3); GFR 63.8; POTASSIUM 3.9 mmol/L (3.5-5.1)
[2020-10-24 11:58] LABS: WHITE BLOOD COUNT 1.6 x10^3/uL (4.0-11.0)
[2020-10-24 12:00] LABS: ALBUMIN 3.6 g/dL (3.4-5.0); TOTAL BILIRUBIN 0.3 mg/dL (0.2-1.0); TOTAL PROTEIN 7.2 g/dL (6.4-8.2)
[2020-10-24 15:32] LABS: % ATYL 3 % (0-0); % BANDS 9 % (0-9); % EOS 7 % (0-5); % LYMPHS 20 % (24-48); % MONOS 16 % (0-10); % SEGS 45 % (35-66); ANISOCYTOSIS SLIGHT; OVALOCYTES FEW; PLT ESTIMATE DECREASED (ADEQUATE)
== END ==
LOC: ONCLAB 11:10
PROVIDERS: ATTEND Physician Assistant
DX: C20 Malignant neoplasm of rectum (principal)
CPT/HCPCS: 36415; 80053; 85007; 85025

== ENCOUNTER → 2020-10-26 | Outpatient (CLI) | payer OTHER ==
[2020-10-25 10:59] VITALS: BP 150/78
[2020-10-26 10:13] LABS: BASO % 0 % (0-3); EOS # 0.2 x10^3/uL (0.0-0.7); EOS % 1 % (0-3); HEMATOCRIT 36.6 % (39.0-53.0); HEMOGLOBIN 12.3 g/dL (13.0-17.5); LYMPH # 0.6 x10^3/uL (1.0-4.8); LYMPH % 4 % (24-48); MEAN CORPUSCULAR HEMOGLOBIN 34 pg (25-35); MEAN CORPUSCULAR HGB CONC 34 g/dL (31-37); MEAN CORPUSCULAR VOLUME 101 fL (79-100); MONO # 0.6 x10^3/uL (0.0-1.1); MONO % 4 % (0-9); NEUT # 15.6 x10^3/uL (1.8-7.7); NEUT % 92 % (31-73); PLATELET COUNT 132 x10^3/uL (140-400); RED BLOOD COUNT 3.62 x10^6/uL (4.30-5.70); RED CELL DISTRIBUTION WIDTH 16.9 % (11.5-14.5)
== END ==
LOC: ONCLAB 09:14
PROVIDERS: ATTEND Physician Assistant
DX: C20 Malignant neoplasm of rectum (principal)
CPT/HCPCS: 36415; 85025

== ENCOUNTER → 2020-10-31 | Outpatient (CLI) | payer OTHER ==
[2020-10-25 10:59] VITALS: BP 150/78
[2020-10-31 10:46] LABS: BASO % 1 % (0-3); EOS # 0.2 x10^3/uL (0.0-0.7); EOS % 4 % (0-3); HEMATOCRIT 37.7 % (39.0-53.0); HEMOGLOBIN 12.6 g/dL (13.0-17.5); LYMPH # 0.5 x10^3/uL (1.0-4.8); LYMPH % 14 % (24-48); MEAN CORPUSCULAR HEMOGLOBIN 34 pg (25-35); MEAN CORPUSCULAR HGB CONC 34 g/dL (31-37); MEAN CORPUSCULAR VOLUME 101 fL (79-100); MONO # 0.6 x10^3/uL (0.0-1.1); MONO % 16 % (0-9); NEUT # 2.5 x10^3/uL (1.8-7.7); NEUT % 66 % (31-73); PLATELET COUNT 152 x10^3/uL (140-400); RED BLOOD COUNT 3.74 x10^6/uL (4.30-5.70); RED CELL DISTRIBUTION WIDTH 16.8 % (11.5-14.5); WHITE BLOOD COUNT 3.9 x10^3/uL (4.0-11.0)
[2020-10-31 10:58] LABS: CALCIUM 9.1 mg/dL (8.5-10.1); CREATININE 0.9 mg/dL (0.7-1.3); GFR 88.6; POTASSIUM 4.4 mmol/L (3.5-5.1)
[2020-10-31 11:03] LABS: ALBUMIN 3.4 g/dL (3.4-5.0); ALBUMIN/GLOBULIN RATIO 0.9 (1.0-1.7); TOTAL BILIRUBIN 0.3 mg/dL (0.2-1.0); TOTAL PROTEIN 7.1 g/dL (6.4-8.2)
== END ==
LOC: ONCLAB 10:16
PROVIDERS: ATTEND Physician Assistant
DX: C20 Malignant neoplasm of rectum (principal)
CPT/HCPCS: 36415; 80053; 82378; 85025

== ENCOUNTER → 2020-11-07 | Outpatient (CLI) | payer OTHER ==
[2020-10-25 10:59] VITALS: BP 150/78
[2020-11-07 11:17] LABS: BASO % 0 % (0-3); EOS # 0.2 x10^3/uL (0.0-0.7); EOS % 2 % (0-3); HEMATOCRIT 39.3 % (39.0-53.0); HEMOGLOBIN 13.4 g/dL (13.0-17.5); LYMPH # 0.4 x10^3/uL (1.0-4.8); LYMPH % 6 % (24-48); MEAN CORPUSCULAR HEMOGLOBIN 34 pg (25-35); MEAN CORPUSCULAR HGB CONC 34 g/dL (31-37); MEAN CORPUSCULAR VOLUME 101 fL (79-100); MONO # 0.4 x10^3/uL (0.0-1.1); MONO % 5 % (0-9); NEUT # 6.4 x10^3/uL (1.8-7.7); NEUT % 86 % (31-73); PLATELET COUNT 127 x10^3/uL (140-400); RED CELL DISTRIBUTION WIDTH 16.3 % (11.5-14.5); WHITE BLOOD COUNT 7.4 x10^3/uL (4.0-11.0)
[2020-11-07 11:28] LABS: CALCIUM 9.6 mg/dL (8.5-10.1); GFR 78.5; POTASSIUM 4.2 mmol/L (3.5-5.1)
[2020-11-07 11:35] LABS: ALBUMIN 3.8 g/dL (3.4-5.0); TOTAL BILIRUBIN 0.2 mg/dL (0.2-1.0); TOTAL PROTEIN 7.7 g/dL (6.4-8.2)
[2020-11-07 12:22] LABS: % BANDS 3 % (0-9); % BASOS 1 % (0-3); % EOS 1 % (0-5); % LYMPHS 9 % (24-48); % MONOS 3 % (0-10); % SEGS 83 % (35-66); PLT ESTIMATE DECREASED (ADEQUATE)
== END ==
LOC: ONCLAB 10:22
PROVIDERS: ATTEND Physician Assistant
DX: C20 Malignant neoplasm of rectum (principal)
CPT/HCPCS: 36415; 80053; 82378; 85007; 85025

== ENCOUNTER → 2020-11-14 | Outpatient (CLI) | payer OTHER ==
[2020-10-25 10:59] VITALS: BP 150/78
[2020-11-14 10:33] LABS: BASO # 0.1 x10^3/uL (0.0-0.2); BASO % 1 % (0-3); EOS # 0.1 x10^3/uL (0.0-0.7); EOS % 1 % (0-3); HEMATOCRIT 38.8 % (39.0-53.0); HEMOGLOBIN 13.4 g/dL (13.0-17.5); LYMPH # 0.7 x10^3/uL (1.0-4.8); LYMPH % 9 % (24-48); MEAN CORPUSCULAR HEMOGLOBIN 35 pg (25-35); MEAN CORPUSCULAR HGB CONC 35 g/dL (31-37); MEAN CORPUSCULAR VOLUME 100 fL (79-100); MONO # 0.7 x10^3/uL (0.0-1.1); MONO % 10 % (0-9); NEUT # 5.8 x10^3/uL (1.8-7.7); NEUT % 78 % (31-73); PLATELET COUNT 154 x10^3/uL (140-400); RED CELL DISTRIBUTION WIDTH 16.5 % (11.5-14.5); WHITE BLOOD COUNT 7.4 x10^3/uL (4.0-11.0)
[2020-11-14 10:46] LABS: CALCIUM 9.7 mg/dL (8.5-10.1); CREATININE 1.1 mg/dL (0.7-1.3); GFR 70.3; POTASSIUM 4.7 mmol/L (3.5-5.1)
[2020-11-14 10:59] LABS: ALBUMIN 3.7 g/dL (3.4-5.0); ALBUMIN/GLOBULIN RATIO 0.9 (1.0-1.7); TOTAL BILIRUBIN 0.3 mg/dL (0.2-1.0); TOTAL PROTEIN 7.6 g/dL (6.4-8.2)
== END ==
LOC: ONCLAB 09:19
PROVIDERS: ATTEND Physician Assistant
DX: C20 Malignant neoplasm of rectum (principal)
CPT/HCPCS: 36415; 80053; 82378; 85025

== ENCOUNTER → 2020-11-28 | Outpatient (CLI) | payer OTHER ==
[2020-10-25 10:59] VITALS: BP 150/78
[2020-11-28 09:19] LABS: BASO % 0 % (0-3); EOS # 0.1 x10^3/uL (0.0-0.7); EOS % 2 % (0-3); HEMATOCRIT 35.5 % (39.0-53.0); HEMOGLOBIN 12.4 g/dL (13.0-17.5); LYMPH # 0.6 x10^3/uL (1.0-4.8); LYMPH % 12 % (24-48); MEAN CORPUSCULAR HEMOGLOBIN 35 pg (25-35); MEAN CORPUSCULAR HGB CONC 35 g/dL (31-37); MEAN CORPUSCULAR VOLUME 99 fL (79-100); MONO # 0.7 x10^3/uL (0.0-1.1); MONO % 14 % (0-9); NEUT # 3.8 x10^3/uL (1.8-7.7); NEUT % 72 % (31-73); PLATELET COUNT 123 x10^3/uL (140-400); RED CELL DISTRIBUTION WIDTH 16.2 % (11.5-14.5); WHITE BLOOD COUNT 5.3 x10^3/uL (4.0-11.0)
[2020-11-28 09:33] LABS: CREATININE 1.4 mg/dL (0.7-1.3); GFR 53.2
[2020-11-28 09:44] LABS: ALBUMIN 3.6 g/dL (3.4-5.0); TOTAL BILIRUBIN 0.2 mg/dL (0.2-1.0); TOTAL PROTEIN 7.1 g/dL (6.4-8.2)
== END ==
LOC: ONCLAB 08:12
PROVIDERS: ATTEND Physician Assistant
DX: C20 Malignant neoplasm of rectum (principal)
CPT/HCPCS: 36415; 80053; 82378; 85025

== ENCOUNTER → 2020-12-12 | Outpatient (CLI) | payer OTHER ==
[2020-10-25 10:59] VITALS: BP 150/78
[2020-12-12 09:16] LABS: BASO % 0 % (0-3); EOS # 0.1 x10^3/uL (0.0-0.7); EOS % 2 % (0-3); HEMATOCRIT 37.8 % (39.0-53.0); HEMOGLOBIN 13.1 g/dL (13.0-17.5); LYMPH # 0.7 x10^3/uL (1.0-4.8); LYMPH % 10 % (24-48); MEAN CORPUSCULAR HEMOGLOBIN 34 pg (25-35); MEAN CORPUSCULAR HGB CONC 35 g/dL (31-37); MEAN CORPUSCULAR VOLUME 99 fL (79-100); MONO # 0.7 x10^3/uL (0.0-1.1); MONO % 9 % (0-9); NEUT % 79 % (31-73); PLATELET COUNT 132 x10^3/uL (140-400); RED BLOOD COUNT 3.83 x10^6/uL (4.30-5.70); RED CELL DISTRIBUTION WIDTH 16.7 % (11.5-14.5); WHITE BLOOD COUNT 7.7 x10^3/uL (4.0-11.0)
[2020-12-12 09:24] LABS: CALCIUM 9.3 mg/dL (8.5-10.1); CREATININE 1.1 mg/dL (0.7-1.3); GFR 70.3
[2020-12-12 09:30] LABS: ALBUMIN 3.7 g/dL (3.4-5.0); TOTAL BILIRUBIN 0.3 mg/dL (0.2-1.0); TOTAL PROTEIN 7.4 g/dL (6.4-8.2)
== END ==
LOC: ONCLAB 08:57
PROVIDERS: ATTEND Physician Assistant
DX: C20 Malignant neoplasm of rectum (principal)
CPT/HCPCS: 36415; 80053; 82378; 85025

== ENCOUNTER → 2020-12-26 | Outpatient (CLI) | payer OTHER ==
[2020-10-25 10:59] VITALS: BP 150/78
[2020-12-26 10:40] LABS: BASO # 0.1 x10^3/uL (0.0-0.2); BASO % 1 % (0-3); EOS # 0.1 x10^3/uL (0.0-0.7); EOS % 2 % (0-3); HEMATOCRIT 37.4 % (39.0-53.0); HEMOGLOBIN 13.2 g/dL (13.0-17.5); LYMPH # 0.7 x10^3/uL (1.0-4.8); LYMPH % 9 % (24-48); MEAN CORPUSCULAR HEMOGLOBIN 35 pg (25-35); MEAN CORPUSCULAR HGB CONC 35 g/dL (31-37); MEAN CORPUSCULAR VOLUME 99 fL (79-100); MONO # 0.6 x10^3/uL (0.0-1.1); MONO % 8 % (0-9); NEUT # 6.4 x10^3/uL (1.8-7.7); NEUT % 81 % (31-73); PLATELET COUNT 117 x10^3/uL (140-400); RED BLOOD COUNT 3.77 x10^6/uL (4.30-5.70); RED CELL DISTRIBUTION WIDTH 16.8 % (11.5-14.5); WHITE BLOOD COUNT 7.9 x10^3/uL (4.0-11.0)
[2020-12-26 10:45] LABS: CALCIUM 9.1 mg/dL (8.5-10.1); CREATININE 1.1 mg/dL (0.7-1.3); GFR 70.3; POTASSIUM 4.1 mmol/L (3.5-5.1)
[2020-12-26 10:53] LABS: ALBUMIN 3.7 g/dL (3.4-5.0); TOTAL BILIRUBIN 0.3 mg/dL (0.2-1.0); TOTAL PROTEIN 7.4 g/dL (6.4-8.2)
[2020-12-26 12:41] LABS: % BANDS 5 % (0-9); % LYMPHS 9 % (24-48); % MONOS 7 % (0-10); % SEGS 79 % (35-66); NUCLEATED RBC 2
[2020-12-26 12:42] LABS: PLT ESTIMATE DECREASED (ADEQUATE)
== END ==
LOC: ONCLAB 09:08
PROVIDERS: ATTEND Physician Assistant
DX: C20 Malignant neoplasm of rectum (principal)
CPT/HCPCS: 36415; 80053; 82378; 85007; 85025

== ENCOUNTER → 2021-01-09 | Outpatient (CLI) | payer OTHER ==
[2020-10-25 10:59] VITALS: BP 150/78
[2021-01-09 11:15] LABS: BASO % 0 % (0-3); EOS # 0.1 x10^3/uL (0.0-0.7); EOS % 2 % (0-3); HEMATOCRIT 37.3 % (39.0-53.0); HEMOGLOBIN 12.8 g/dL (13.0-17.5); LYMPH # 0.6 x10^3/uL (1.0-4.8); LYMPH % 11 % (24-48); MEAN CORPUSCULAR HEMOGLOBIN 35 pg (25-35); MEAN CORPUSCULAR HGB CONC 34 g/dL (31-37); MEAN CORPUSCULAR VOLUME 101 fL (79-100); MONO # 0.7 x10^3/uL (0.0-1.1); MONO % 12 % (0-9); NEUT # 4.6 x10^3/uL (1.8-7.7); NEUT % 76 % (31-73); PLATELET COUNT 110 x10^3/uL (140-400); RED BLOOD COUNT 3.68 x10^6/uL (4.30-5.70); RED CELL DISTRIBUTION WIDTH 17.7 % (11.5-14.5); WHITE BLOOD COUNT 6.1 x10^3/uL (4.0-11.0)
[2021-01-09 11:21] LABS: CALCIUM 9.4 mg/dL (8.5-10.1); CREATININE 1.1 mg/dL (0.7-1.3); GFR 70.3
[2021-01-09 11:29] LABS: ALBUMIN 3.6 g/dL (3.4-5.0); TOTAL BILIRUBIN 0.3 mg/dL (0.2-1.0); TOTAL PROTEIN 7.3 g/dL (6.4-8.2)
[2021-01-09 13:14] LABS: % ATYL 2 % (0-0); % BANDS 13 % (0-9); % EOS 1 % (0-5); % LYMPHS 7 % (24-48); % MONOS 7 % (0-10); % SEGS 70 % (35-66); ANISOCYTOSIS SLIGHT; PLT ESTIMATE DECREASED (ADEQUATE)
== END ==
LOC: ONCLAB 09:56
PROVIDERS: ATTEND Internal Medicine Hematology & Oncology
DX: C20 Malignant neoplasm of rectum (principal)
CPT/HCPCS: 36415; 80053; 82378; 85007; 85025

== ENCOUNTER → 2021-01-26 | Outpatient (CLI) | payer OTHER ==
[2020-10-25 10:59] VITALS: BP 150/78
[~2021-01-26] MED LIST changes: +DICY20TA PO; -DICY20TA3 PO; +IOHEXOL 240 MG/ML 50ML VIAL. PO ONE; +IOHEXOL 300 MG/ML 100ML VIAL. IV ONE
--- NOTE | 2021-01-26 12:51 | RAD ---
EXAM: CT OF THE CHEST, ABDOMEN AND PELVIS WITH CONTRAST. HISTORY: Restaging rectal cancer. TECHNIQUE: Computed tomography of the chest, abdomen and pelvis was performed after the intravenous a dministration of iodinated contrast. One or more of the following individualized dose reduction techn iques were utilized for this examination: 1. Automated exposure control. 2. Adjustment of the mA and/or kV according to patient size. 3. Use of iterative reconstruction technique. COMPARISON: 08/26/2020. FINDINGS: Bone windows reveal no suspicious lesions. A right-sided port catheter has its tip in the s uperior cavoatrial junction. A fluid density mass within the anterior mediastinal fat measures 2.1 x 1.6 cm, increased from 1.7 x 1.5 cm previously. There is no clear solid component. There are no pathologically enlarged mediastinal or axillary lymph nodes. There is no pleural or elijah cardial effusion. The heart is not enlarged. A nodule in the lingula is stable at 6 mm. There are mild groundglass infiltrates in the right middle lobe. A groundglass nodule in the right upper lobe is less dense than previously an stable at 6 mm. Atelectasis or scarring in the lower lobes is stable. Hypoattenuation of the hepatic parenchyma indicates moderate diffuse hepatic steatosis. The gallbladd er, pancreas, adrenal glands, spleen and kidneys are unremarkable. There are no pathologically enlarg ed lymph nodes. A small umbilical hernia contains only fat. Wall thickening along the rectum is stable. There is no clear focal mass. There is no small bowel obs truction. There is moderate bladder wall thickening. IMPRESSION: 1. Nonfocal rectal wall thickening is stable and may reflect posttreatment change. 2. No clear evidence of metastatic disease. 3. New mild groundglass infiltrates in the right upper lobe are consistent with mild pneumonitis. 4. A few small pulmonary nodules are stable. Attention on further follow-up. 5. A fluid density mass within the anterior mediastinal fat may reflect a thymic cyst and appears indy ign. It has increased in size slightly. Attention on further follow-up. Electronically signed by: Darrel Carvalho MD (01/26/2021 12:49 PM) [id number]
== END ==
LOC: CT 08:06
PROVIDERS: ATTEND Internal Medicine Hematology & Oncology
DX: C20 Malignant neoplasm of rectum (principal); R91.8 Other nonspecific abnormal finding of lung field; K76.0 Fatty (change of) liver, not elsewhere classified; K42.9 Umbilical hernia without obstruction or gangrene
CPT/HCPCS: 71260; 74177; Q9966; Q9967

== ENCOUNTER → 2021-01-27 | Outpatient (CLI) | payer OTHER ==
[2020-10-25 10:59] VITALS: BP 150/78
[~2021-01-27] MED LIST changes: -DICY20TA PO; +DICY20TA3 PO; -IOHEXOL 240 MG/ML 50ML VIAL. PO ONE; -IOHEXOL 300 MG/ML 100ML VIAL. IV ONE
[2021-01-27 12:32] LABS: BASO % 0 % (0-3); EOS # 0.1 x10^3/uL (0.0-0.7); EOS % 2 % (0-3); HEMATOCRIT 34.8 % (39.0-53.0); HEMOGLOBIN 11.9 g/dL (13.0-17.5); LYMPH # 0.5 x10^3/uL (1.0-4.8); LYMPH % 9 % (24-48); MEAN CORPUSCULAR HEMOGLOBIN 35 pg (25-35); MEAN CORPUSCULAR HGB CONC 34 g/dL (31-37); MEAN CORPUSCULAR VOLUME 102 fL (79-100); MONO # 0.7 x10^3/uL (0.0-1.1); MONO % 11 % (0-9); NEUT # 4.8 x10^3/uL (1.8-7.7); NEUT % 78 % (31-73); PLATELET COUNT 112 x10^3/uL (140-400); RED BLOOD COUNT 3.43 x10^6/uL (4.30-5.70); RED CELL DISTRIBUTION WIDTH 17.5 % (11.5-14.5); WHITE BLOOD COUNT 6.1 x10^3/uL (4.0-11.0)
[2021-01-27 12:41] LABS: CALCIUM 8.7 mg/dL (8.5-10.1); GFR 78.5; POTASSIUM 3.9 mmol/L (3.5-5.1)
[2021-01-27 12:48] LABS: ALBUMIN 3.5 g/dL (3.4-5.0); TOTAL BILIRUBIN 0.4 mg/dL (0.2-1.0); TOTAL PROTEIN 7.1 g/dL (6.4-8.2)
== END ==
LOC: ONCLAB 12:07
PROVIDERS: ATTEND Internal Medicine Hematology & Oncology
DX: C20 Malignant neoplasm of rectum (principal)
CPT/HCPCS: 36415; 80053; 82378; 85025

== ENCOUNTER 2021-03-16 19:29 | Emergency (ER) | payer OTHER ==
[~2021-03-16] VITALS: Ht 193 cm; Wt 104.5 kg
[~2021-03-16 19:29] MED LIST changes: +DICY20TA PO; -DICY20TA3 PO
--- NOTE | 2021-03-16 21:51 | PHYS DOC ---
Past Medical History Past Medical History: High Cholesterol Additional Past Medical Histor: COLORECTAL CANCER WITH CHEMO 1 MONHT AGO Past Surgical History: No Surgical History Smoking Status: Never Smoker Alcohol Use: Occasionally Drug Use: None General Adult EDM: Chief Complaint: FLU SYMPTOM HPI: HPI: Patient is a 50-year-old male who presents to the emergency department for shortness of breath, cough, fevers, body aches, nausea, fatigue that started 1 week ago. Patient took an at-home test and was positive for COVID-19. Patient denies vomiting, diarrhea, chest pain or palpitations. 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 Patient is mildly tachycardic, no hypoxia and afebrile. Review of Systems: Review of Systems: 14 body systems of the review of systems have been reviewed. See HPI for pertinent positive and negative responses, otherwise all other systems are negative, nonpertinent or noncontributory Heart Score: C/O Chest Pain: No Risk Factors: Risk Factors: DM, Current or recent (<one month) smoker, HTN, HLP, family history of CAD, obesity. Risk Scores: Score 0 - 3: 2.5% MACE over next 6 weeks - Discharge Home Score 4 - 6: 20.3% MACE over next 6 weeks - Admit for Clinical Observation Score 7 - 10: 72.7% MACE over next 6 weeks - Early Invasive Strategies Allergies: Allergies: Allergies Coded Allergies Type Severity Reaction Last Updated Verified No Known Drug Allergies 10/26/20 No Physical Exam: PE: Constitutional: Well developed, well nourished, no acute distress, non-toxic appearance. [] HENT: Normocephalic, atraumatic, bilateral external ears normal, oropharynx moist, no oral exudates, nose normal. [] Eyes: PERRL, EOMI, conjunctiva normal, no discharge. [] Neck: Normal range of motion, no stridor Cardiovascular:Heart rate tachycardic rhythm, no murmur [] Lungs & Thorax: Bilateral breath sounds clear to auscultation [] Abdomen: Bowel sounds normal, soft, no tenderness, no masses, no pulsatile masses. [] Skin: Warm, dry, no erythema, no rash. [] Back: Normal range of motion Extremities: No tenderness, no cyanosis, no clubbing, ROM intact, no edema. [] Neurologic: Alert and oriented X 3, normal motor function, normal sensory function, no focal deficits noted. [] Psychologic: Affect normal, judgement normal, mood normal. [] Current Patient Data: Labs: Laboratory Tests Test 03/16/21 22:00 03/16/21 22:03 SARS-CoV-2 Antigen (Rapid) Positive White Blood Count 2.1 x10^3/uL Red Blood Count 4.12 x10^6/uL Hemoglobin 14.5 g/dL Hematocrit 42.0 % Mean Corpuscular Volume 102 fL Mean Corpuscular Hemoglobin 35 pg Mean Corpuscular Hemoglobin Concent 35 g/dL Red Cell Distribution Width 14.1 % Platelet Count 127 x10^3/uL Neutrophils (%) (Auto) 64 % Lymphocytes (%) (Auto) 26 % Monocytes (%) (Auto) 9 % Eosinophils (%) (Auto) 0 % Basophils (%) (Auto) 1 % Neutrophils # (Auto) 1.4 x10^3/uL Lymphocytes # (Auto) 0.5 x10^3/uL Monocytes # (Auto) 0.2 x10^3/uL Eosinophils # (Auto) 0.0 x10^3/uL Basophils # (Auto) 0.0 x10^3/uL Sodium Level 136 mmol/L Potassium Level 4.3 mmol/L Chloride Level 100 mmol/L Carbon Dioxide Level 25 mmol/L Anion Gap 11 Blood Urea Nitrogen 18 mg/dL Creatinine 1.4 mg/dL Estimated GFR (Cockcroft-Gault) 53.2 BUN/Creatinine Ratio 13 Glucose Level 105 mg/dL Calcium Level 8.9 mg/dL Total Bilirubin 0.7 mg/dL Aspartate Amino Transf (AST/SGOT) 36 U/L Alanine Aminotransferase (ALT/SGPT) 53 U/L Alkaline Phosphatase 75 U/L Troponin I High Sensitivity 7 ng/L Total Protein 7.9 g/dL Albumin 4.0 g/dL Albumin/Globulin Ratio 1.0 Vital Signs: Vital Signs Date Time Temp Pulse Resp B/P (MAP) Pulse Ox O2 Delivery O2 Flow Rate FiO2 03/16/21 20:50 99.3 103 20 113/77 (89) 99 Room Air 99.3 EKG: EKG: [] EKG performed by ER staff at 1 shows sinus rhythm with a rate of 92, QTc 455, no STEMI read by Dr. Moya at 2204 Radiology/Procedures: Radiology/Procedures: []PROCEDURE: PORTABLE CHEST 1V Exam: Chest one view INDICATION: Short of air, Covid TECHNIQUE: Frontal view of the chest Comparisons: 10/04/2019 FINDINGS: Right anterior chest wall port with catheter tip at the SVC. The cardiomediastinal silhouette and pulmonary vessels are within normal limits. The lung and pleural spaces are clear. IMPRESSION: No acute cardiopulmonary process. Electronically signed by: Marita Briscoe MD (03/16/2021 10:47 PM) [facility] DICTATED and SIGNED BY: MARITA BRISCOE MD DATE: 03/16/21 [id number] 0 Course & Med Decision Making: Course & Med Decision Making Pertinent Labs and Imaging studies reviewed. (See chart for details) [] Patient presents to the emergency department for cough, shortness of breath, nausea, body aches and fatigue that started 1 week ago. Patient had a positive at-home Covid test. Work-up in the ER consisted of blood work, EKG and chest x- ray. Mild leukopenia noted with white blood cell count of 2.1 consistent with CML. Chest x-ray negative, CMP negative, troponin negative, chest x-ray unremarkable rapid Covid test was positive.. Patient advised to follow-up with his primary care provider. Educated on symptomatic treatment. Patient is in no acute distress, vital signs are stable, heart rate has improved to 97 bpm, he is not requiring any oxygen at this time. I discussed with patient all findings and diagnostic testing as well as the need to follow-up with PCP for further evaluation and treatment or return to the ER if any new or worsening symptoms. Strict return precautions were also discussed at length. Patient voiced understanding and agreement with the plan. Patient is hemodynamically stable at the time of disposition. Dragon Disclaimer: Dragon Disclaimer: This electronic medical record was generated, in whole or in part, using a voice recognition dictation system. Departure Departure Impression: Primary Impression: COVID-19 Disposition: HOME / SELF CARE / HOMELESS Condition: GOOD Referrals: YAKOV DAUGHERTY MD (PCP) Patient Instructions: Cough, Adult Additional Instructions: You were seen in the emergency department for Covid symptoms. Your rapid Covid test in the emergency department today was positive. Your vital signs are stable and you are not requiring any oxygen at home. Your blood work was unremarkable. Your chest x-ray did not show pneumonia. Please purchase a pulse oximeter and monitor your heart rate pulse ox. Please return to the emergency department if your O2 saturation dropped below 90% and your heart rate is above 100-110 for any fevers please take Tylenol and/or ibuprofen. For your shortness of breath you can use the inhaler that was prescribed for you. For your cough please take Delsym [id number]. Please follow-up with your primary care provider cheryl jeffrey regarding your ER visit. Please return to the emergency department if you develop increasing shortness of breath, changes in your O2 saturation or heart rate, chest pain, high fevers refractory to treatment, intractable vomiting, weakness or lethargy. You have been tested for or diagnosed with COVID-19. It is an infection caused by a new type of coronavirus. COVID-19 will cause cold-like or mild flu symptoms in most. It can cause more severe symptoms like problems breathing in some. There is no treatment for COVID-19. The body will clear the infection over time. Self-care will help to ease discomfort. Steps to Take: Self-Care Rest as needed. Healthy habits may help you feel better. Steps include: Choose healthy foods including fruits and vegetables. Drink water throughout the day. Get plenty of sleep each night. If you smoke, try to quit. It may ease breathing. Avoid alcohol. Keep Others Healthy The virus can spread to others. Droplets are released every time you sneeze or cough. The droplets can get into the mouth, nose, or eyes of people near you and lead to infection. To lower the chances of spreading COVID-19 to others: Stay at home until your doctor has said it is safe to leave. If you tested positive this will mean staying isolated until both of the following are true: At least 7 days have passed since the start of illness. You are free of fever for at least 72 hours without the use of medicine. During this time: - Avoid public areas, events, or transportation. Do not return to work or [employer] until your doctor has said it is safe to do so. - Call ahead if you need to go to a medical center. Let them know you may have COVID-19. It will help them guide you where to go. They may also ask you to wear a facemask when you come to the office. - If you call for emergency medical services, let them know you may have COVID- 19. While at home: - Try to avoid close contact with others. Stay about 6 feet away. - If possible, spend most of your time in a separate room from others. - Use a face mask if you will be in close contact with others such as sharing a room or vehicle. - Have someone wipe down common surfaces in the home. Use household tongue and quarter stitcher every day on areas like doorknobs, counters, or sinks. - Cough or sneeze into a tissue. Throw the tissue away right after use. If a tissue is not available, cough or sneeze into your elbow. - Wash your hands often. Wash them after sneezing or coughing. Use soap and water and wash for at least 20 seconds. Alcohol based hand venetian blind cleaner and repairer can be used if soap and water is not available. - Do not prepare food for others. Avoid sharing personal items like forks, spoons, or toothbrushes. - Avoid close contact with pets while you are sick. There is no evidence of the virus passing to pets. This is a safety step until more is known about this virus. Isolation can be frustrating. Social interaction can help. Keep in touch with fr iends and family through phone and tech options. You can still interact with others in your home, just keep a safe distance of about 6 feet. Follow-up: Your doctors office will check in with you to see if there are any changes in your health. You may be asked to keep track of symptoms to share with them. They will also let you know when you are clear to be in public again. Problems to Look Out For: Contact your doctor if your recovery is not going as you expect. Get emergency care if you have problems such as: - Trouble breathing - Nonstop chest pain or pressure - Changes in awareness, confusion, or problems waking - Lips or face have bluish color - Worsening of symptoms If you think you have an emergency, call for emergency medical services right away. [facility] Albuterol Sulfate (Proair Hfa) 8.5 Gm Hfa.aer.ad 2 PUFF IH PRN Q4-6HRS PRN for wheezing for 21 Days, #1 INHALER 0 Refills Prov: OJ VIDAL WOOD PILER 03/16/21 OJ VIDAL APRN Mar 16, 2021 21:51
[2021-03-16 22:13] LABS: BASO % 1 % (0-3); EOS % 0 % (0-3); HEMOGLOBIN 14.5 g/dL (13.0-17.5); LYMPH # 0.5 x10^3/uL (1.0-4.8); LYMPH % 26 % (24-48); MEAN CORPUSCULAR HEMOGLOBIN 35 pg (25-35); MEAN CORPUSCULAR HGB CONC 35 g/dL (31-37); MEAN CORPUSCULAR VOLUME 102 fL (79-100); MONO # 0.2 x10^3/uL (0.0-1.1); MONO % 9 % (0-9); NEUT # 1.4 x10^3/uL (1.8-7.7); NEUT % 64 % (31-73); PLATELET COUNT 127 x10^3/uL (140-400); RED BLOOD COUNT 4.12 x10^6/uL (4.30-5.70); RED CELL DISTRIBUTION WIDTH 14.1 % (11.5-14.5); WHITE BLOOD COUNT 2.1 x10^3/uL (4.0-11.0)
[2021-03-16 22:24] LABS: CALCIUM 8.9 mg/dL (8.5-10.1); CREATININE 1.4 mg/dL (0.7-1.3); GFR 53.2; POTASSIUM 4.3 mmol/L (3.5-5.1)
[2021-03-16 22:30] LABS: TOTAL BILIRUBIN 0.7 mg/dL (0.2-1.0); TOTAL PROTEIN 7.9 g/dL (6.4-8.2)
--- NOTE | 2021-03-16 22:49 | RAD ---
Exam: Chest one view INDICATION: Short of air, Covid TECHNIQUE: Frontal view of the chest Comparisons: 10/04/2019 FINDINGS: Right anterior chest wall port with catheter tip at the SVC. The cardiomediastinal silhouette and pulmonary vessels are within normal limits. The lung and pleural spaces are clear. IMPRESSION: No acute cardiopulmonary process. Electronically signed by: Marita Guerra MD (03/16/2021 10:47 PM) [facility]
[2021-03-16] MEDS ORDERED: ALBU2.5V8 IH (23:01)
[2021-03-16 23:10] VITALS: BP 114/81
--- NOTE | 2021-03-17 03:18 | EKG ---
[facility] [address] [place] [address] Test Date: 2021-03-16 Test Time: 22:01:10 Pat Name: GIO RICHARDSON Department: Room: Gender: M Sack Maker: : [id number] Requested By: OJ VIDAL Order Number: [id number] Reading MD: Jake Morales MD Measurements Intervals [place] Rate: 92 P: 31 GA: 132 QRS: -44 QRSD: 90 T: 39 QT: 364 QTc: 455 Interpretive Statements SINUS RHYTHM Electronically Signed On 03-19-2021 20:54:45 MOLD CLAMPER by Jake Morales MD
== END 2021-03-17 00:13 | disposition home or self-care (01) ==
LOC: ER 19:29
DX: U07.1 COVID-19 (principal); E78.00 Pure hypercholesterolemia, unspecified
CPT/HCPCS: 36415; 71045; 80053; 84484; 85025; 87426; 93005; 99285-25